=== PATIENT | female | born 1950 | race African-American/Black ===

== ENCOUNTER 2016-03-26 00:20 | Inpatient (IN) | payer MEDICAID ==
[~2016-03-26] VITALS: Ht 165.1 cm; Wt 77.3 kg
[2016-03-26] MEDS ORDERED: ONDANSETRON 4 MG INJ IV STA (00:34)
[2016-03-26] MEDS ORDERED: HYDROmorphONE 1 MG/ML SYG IV STA ×3 (00:34→06:48)
[2016-03-26 00:37] VITALS: Ht 165.1 cm; Wt 77.3 kg
[2016-03-26 01:33] VITALS: TEMP 98.3
[2016-03-26 02:08] LABS: POTASSIUM 4.6 mmol/L (3.5-5.1)
[2016-03-26 02:10] LABS: CREATININE 0.46 mg/dl (0.44-1.00)
[2016-03-26 02:11] LABS: CALCIUM 9.6 mg/dl (8.4-10.2)
[2016-03-26 02:34] LABS: BASOPHIL # 0.1 10^3/ul (0.0-0.1); BASOPHILS % 0.9 % (0.0-2.0); EOSINOPHILS # 0.1 10^3/ul (0.0-0.5); EOSINOPHILS % 1.5 % (0.0-7.0); HEMOGLOBIN 13.8 g/dl (12.0-16.0); LYMPHOCYTES % 30.1 % (15.0-51.0); MEAN CORPUSCULAR HEMOGLOBIN 31.6 pg (29.0-33.0); MEAN CORPUSCULAR HGB CONC 32.9 g/dl (32.0-37.0); MEAN CORPUSCULAR VOLUME 95.9 fl (82.0-101.0); MONOCYTE # 0.3 10^3/ul (0.3-0.9); MONOCYTES % 4.9 % (0.0-11.0); NEUTROPHIL # 4.1 10^3/ul (1.6-7.5); NEUTROPHILS % 62.6 % (39.0-77.0); PLATELET COUNT 270 10^3/UL (140-440); RED BLOOD COUNT 4.38 10^6/ul (4.20-5.40); RED CELL DISTRIBUTION WIDTH 13.6 % (11.5-14.5); UNCORRECTED WBC 6.5 10^3/ul (4.8-10.8); WHITE BLOOD COUNT 6.5 10^3/ul (4.8-10.8)
--- NOTE | 2016-03-26 02:39 | ERA ---
ER Documentation Chief Complaint Date/Time DATE: 03/26/16 TIME: 02:36 Chief Complaint BLE pain,hx osteo rheumatoid arthritis HPI 65-year-old female history of rheumatoid arthritis and chronic pain who presents with bilateral lower extremity pain. The patient presents from [facility]. The patient describes an exacerbation of her chronic pain in similar location but 10 out of 10. She does not know if she takes pain medication at home. She denies any fevers or chills, no abdominal pain, no back pain. Pain is in similar location and character but more severe than usual. ROS All systems reviewed and are negative except as per history of present illness. Allergies Allergies: Coded Allergies: No Known Allergy (Unverified , 03/26/16) FmHx Family History: No diabetes Physical Exam Vitals Vital Signs Date Time Temp Pulse Resp B/P Pulse Ox O2 Delivery O2 Flow Rate FiO2 03/26/16 01:33 98.3 86 16 113/60 95 Room Air 03/26/16 00:37 97.8 96 18 125/73 99 Physical Exam General: Uncomfortable, stigmata of rheumatoid arthritis Head: Normocephalic, atraumatic. Eyes: Pupils equally reactive, EOM intact ENT: Moist mucous membranes Neck: Supple, no lymphadenopathy Respiratory: Lungs clear bilaterally, no distress Cardiovascular: RRR, no murmurs, rubs, or gallops Abdominal: Soft, non-tender, non-distended, no peritoneal signs : Deferred MSK: Stigmata of rheumatoid arthritis to bilateral upper and lower extremities. No focal tenderness no erythema warmth or tenderness, no limited range of motion of the patient does not appear to walk on a regular basis. She states that she uses a wheelchair Neurologic: Alert and oriented, moving all extremities, normal speech, no focal weakness, no cerebellar signs Skin: No rash Psych: Normal mood Result Diagram: 03/26/16 0130 Results 24 hrs Laboratory Tests Test 03/26/16 01:30 Anion Gap 19 Blood Urea Nitrogen 14mg/dl Calcium Level 9.6mg/dl Carbon Dioxide Level 24mmol/L Chloride Level 103mmol/L Creatinine 0.46mg/dl Glucose Level 118mg/dl Potassium Level 4.6mmol/L Sodium Level 141mmol/L Current Medications Medications (Trade) Dose Ordered Sig/Essie Route PRN Reason Start Time Stop Time Status Last Admin Dose Admin Hydromorphone HCl (Dilaudid) 1 mg ONCE STAT IV 03/26/16 00:34 03/26/16 00:36 DC 03/26/16 01:10 Ondansetron HCl (Zofran Inj) 4 mg ONCE STAT IV 03/26/16 00:34 03/26/16 00:36 DC 03/26/16 01:10 Hydromorphone HCl (Dilaudid) 1 mg ONCE STAT IV 03/26/16 02:32 03/26/16 02:33 DC Ondansetron HCl (Zofran Inj) 4 mg BRIDGE ORDER PRN IV NAUSEA AND/OR VOMITING 03/26/16 03:00 03/27/16 02:59 Acetaminophen (Tylenol Tab) 650 mg ER BRIDGE PRN PO MILD PAIN/FEVER 03/26/16 03:00 03/27/16 02:59 Procedures/MDM LAB INTERPRETATION: No electrolyte disturbance MEDICAL DECISION MAKING: The patient's symptoms are consistent with an acute exacerbation of her chronic pain secondary to rheumatoid arthritis. No evidence of septic arthritis no evidence of acute aortic process. The patient does not walk at baseline. It appears the patient may also benefit from social work evaluation given that the patient is at a [id number] and not sure that the patient is getting adequate care. Higher level of care may be appropriate. ER COURSE: The patient has received several doses of pain medication requires inpatient hospitalization for pain control, PT OT and possible placement. I kept the patient and/or family informed of laboratory and diagnostic imaging results throughout the emergency room course. DISPOSITION PLAN: [facility] admission CONSULTATION: Accepting care team and consultations: I discussed the current laboratory data, diagnostic imaging and emergency care provided. Admitting team: Dr. Crum Admitting team indication: Insurance directed Departure Diagnosis: Primary Impression: Bilateral leg pain Additional Impressions: Rheumatoid arthritis Qualified Code: M06.9 - Rheumatoid arthritis, involving unspecified site, unspecified rheumatoid factor presence Rheumatoid arthritis flare Condition: MEGAN Del Toro MD Mar 26, 2016 02:39
[2016-03-26 02:52] LABS: CONDITION 1
[2016-03-26] MEDS ORDERED: ACETAMINOPHEN 325 MG TAB PO PRN ×2 (03:00→05:00)
[2016-03-26] MEDS ORDERED: ONDANSETRON 4 MG INJ IV PRN ×2 (03:00→05:00)
[2016-03-26 04:19] VITALS: BP 123/78; PULSE 84; RESP 20
[2016-03-26] MEDS ORDERED: morphine 4 MG/ML VIAL IV PRN ×2 (05:00→13:00)
[2016-03-26] MEDS ORDERED: MORP15TA92 PO (06:52)
[2016-03-26] MEDS ORDERED: PERCOCET PO (06:54)
[2016-03-26] MEDS ORDERED: METH57CR TP (06:54)
[2016-03-26 07:30] VITALS: BP 131/81; RESP 16
--- NOTE | 2016-03-26 08:00 | HP ---
DATE OF ADMISSION: 03/26/2016 TIME SEEN: 5:00 a.m. CHIEF COMPLAINT: Bilateral lower extremity pain. Patient is a 65-year-old female with a history of rheumatoid arthritis and chronic pain who presented to the emergency department with bilateral lower extremity pain. She stated this is similar to her chronic pain, but over the past day or two has bong dugan worse to the point where now she described it as 10/10 in intensity. She denied any other com plaints. When she presented to the ER, her vitals were stable. CBC and BMP are unremarkable. The patient is admitted for pain management. REVIEW OF SYSTEMS: A 12-point review of systems performed is negative except as mentioned in HPI. PAST MEDICAL HISTORY: As per HPI. PAST SURGICAL HISTORY: Bilateral hip surgery and bilateral bunionectomy. SOCIAL HISTORY: Denied a history of tobacco, alcohol or illicit drug use. ALLERGIES: NO KNOWN DRUG ALLERGIES. HOME MEDICATIONS: 1. MS Contin 15 mg every 8 hours. 2. Percocet. 3. Methyl salicylate/menthol cream. PHYSICAL EXAMINATION: VITAL SIGNS: Stable. GENERAL: The patient in some discomfort due to pain, otherwise she is alert and oriented. HEENT: No obvious head deformity. Pupils are reactive to light. Extraocular muscles intact. CARDIOVASCULAR: Regular rate and rhythm. No extra sounds. LUNGS: Clear. ABDOMEN: Soft, nontender, nondistended. Positive bowel sounds. EXTREMITIES: She does have deformities consistent with rheumatoid arthritis. No edema. LABORATORY DATA: CBC and BMP unremarkable. IMPRESSION: 1. Exacerbation of rheumatoid arthritis. 2. Chronic pain, secondary to above. We will provide pain medication to make her feel comfortable. We will also start her on steroids. We will place consult to Dr. Garcia, pain specialist/palliative care. The patient uses a [employer] most of the time, but will have her be evaluated by physical therapy prior to discharge. Further workup and management per clinical course. Dictated By: EUSEBIA HUNG/LYNDSEY Conf#: [id number] DID#: [id number]
[2016-03-26 09:19] LABS: BASOPHIL # 0.1 10^3/ul (0.0-0.1); BASOPHILS % 0.9 % (0.0-2.0); CONDITION 1; EOSINOPHILS # 0.1 10^3/ul (0.0-0.5); HEMATOCRIT 38.4 % (37.0-47.0); HEMOGLOBIN 12.8 g/dl (12.0-16.0); LYMPHOCYTES # 1.3 10^3/ul (0.8-2.9); LYMPHOCYTES % 22.2 % (15.0-51.0); MEAN CORPUSCULAR HEMOGLOBIN 32.1 pg (29.0-33.0); MEAN CORPUSCULAR HGB CONC 33.2 g/dl (32.0-37.0); MEAN CORPUSCULAR VOLUME 96.7 fl (82.0-101.0); MEAN PLATELET VOLUME 6.5 fl (7.4-10.4); MONOCYTE # 0.4 10^3/ul (0.3-0.9); MONOCYTES % 7.1 % (0.0-11.0); NEUTROPHIL # 3.8 10^3/ul (1.6-7.5); NEUTROPHILS % 67.8 % (39.0-77.0); PLATELET COUNT 275 10^3/UL (140-440); RED BLOOD COUNT 3.97 10^6/ul (4.20-5.40); RED CELL DISTRIBUTION WIDTH 13.5 % (11.5-14.5); UNCORRECTED WBC 5.7 10^3/ul (4.8-10.8); WHITE BLOOD COUNT 5.7 10^3/ul (4.8-10.8)
[2016-03-26 09:25] LABS: ALBUMIN 4.1 g/dl (3.3-4.9); POTASSIUM 3.9 mmol/L (3.5-5.1)
[2016-03-26 09:27] LABS: CREATININE 0.43 mg/dl (0.44-1.00)
[2016-03-26 09:28] LABS: ALBUMIN/GLOBULIN RATIO 1.1; BILIRUBIN,INDIRECT 0.3 mg/dl (0-1.1); BILIRUBIN,TOTAL 0.3 mg/dl (0.2-1.3); CALCIUM 9.4 mg/dl (8.4-10.2); TOTAL PROTEIN 7.8 g/dl (6.1-8.1)
[2016-03-26] MEDS: HEPARIN 5,000 UNIT/0.5 ML SYG SC SCH ×2 (10:17→21:31)
[2016-03-26 13:15] LABS: CHOL/HDL RATIO 2.7 RATIO
[2016-03-26] MEDS: morphine 2 MG INJ IV PRN ×2 (16:00→21:01)
[2016-03-26 19:00] VITALS: BP 118/70; RESP 18
[2016-03-27] MEDS: morphine 2 MG INJ IV PRN ×5 (01:43→18:39)
[2016-03-27] MEDS: PANTOPRAZOLE (EC) 40 MG TAB PO SCH (06:16)
[2016-03-27 07:09] LABS: BASOPHILS % 0.5 % (0.0-2.0); EOSINOPHILS # 0.1 10^3/ul (0.0-0.5); EOSINOPHILS % 1.7 % (0.0-7.0); HEMATOCRIT 40.2 % (37.0-47.0); HEMOGLOBIN 13.4 g/dl (12.0-16.0); LYMPHOCYTES # 1.7 10^3/ul (0.8-2.9); LYMPHOCYTES % 25.6 % (15.0-51.0); MEAN CORPUSCULAR HEMOGLOBIN 32.1 pg (29.0-33.0); MEAN CORPUSCULAR HGB CONC 33.3 g/dl (32.0-37.0); MEAN CORPUSCULAR VOLUME 96.5 fl (82.0-101.0); MEAN PLATELET VOLUME 7.4 fl (7.4-10.4); MONOCYTE # 0.6 10^3/ul (0.3-0.9); MONOCYTES % 9.7 % (0.0-11.0); NEUTROPHIL # 4.1 10^3/ul (1.6-7.5); NEUTROPHILS % 62.5 % (39.0-77.0); PLATELET COUNT 269 10^3/UL (140-440); RED BLOOD COUNT 4.16 10^6/ul (4.20-5.40); RED CELL DISTRIBUTION WIDTH 13.5 % (11.5-14.5); UNCORRECTED WBC 6.5 10^3/ul (4.8-10.8); WHITE BLOOD COUNT 6.5 10^3/ul (4.8-10.8)
[2016-03-27 07:13] LABS: CONDITION 1
[2016-03-27 07:22] VITALS: BP 119/62; RESP 16
[2016-03-27 07:34] LABS: POTASSIUM 4.1 mmol/L (3.5-5.1)
[2016-03-27 07:37] LABS: CREATININE 0.46 mg/dl (0.44-1.00)
[2016-03-27 07:38] LABS: CALCIUM 9.6 mg/dl (8.4-10.2)
[2016-03-27] MEDS: HEPARIN 5,000 UNIT/0.5 ML SYG SC SCH ×2 (08:41→21:01)
[2016-03-27] MEDS ORDERED: LOPERAMIDE 2 MG CAP PO PRN (09:30)
[2016-03-27] MEDS ORDERED: ALBUTEROL/IPRATROPIUM (NEB) 3 ML AMP HHN PRN (10:00)
[2016-03-27 10:02] LABS: ADD UMIC YES; URINE BILIRUBIN (Dip) NEGATIVE (NEGATIVE); URINE BLOOD (Dip) TRACE (NEGATIVE); URINE COLOR LT. YELLOW (YELLOW); URINE GLUCOSE (Dip) NEGATIVE (NEGATIVE); URINE KETONES (Dip) NEGATIVE (NEGATIVE); URINE LEUKOCYTE ESTERASE (Dip) 2+ (NEGATIVE); URINE NITRITE (Dip) NEGATIVE (NEGATIVE); URINE TOTAL PROTEIN (Dip) NEGATIVE (NEGATIVE); URINE UROBILINOGEN (Dip) 0.2 E.U./dL (0.1-1.0)
[2016-03-27 10:33] LABS: BACTERIA,URINE MODERATE
--- NOTE | 2016-03-27 11:13 | RADRPT ---
PROCEDURE: XR Abdomen. CLINICAL INDICATION: Abdomen pain. TECHNIQUE: AP supine abdomen x-ray. COMPARISON: None. FINDINGS: The bowel gas pattern is normal. There is no evidence of obstruction. There are no abnormal calcifications overlying the urinary tracts. There is thoracic scoliosis convex right and lumbar scoliosis convex left. There are degenerative c hanges of the spine. There are bilateral total hip arthroplasties. IMPRESSION: 1. Thoracolumbar scoliosis. 2. Degenerative changes of the spine. 3. Bilateral total hip arthroplasties. 4. Otherwise unremarkable study. RPTAT: QQ .Montrell Aguilera MD, MD Date Time Electronically viewed and signed by .Montrell Aguilera MD, MD on 03/27/2016 11:13 .R/
[2016-03-27] MEDS: CYCLOBENZAPRINE 10 MG TAB PO SCH ×2 (12:18→20:26)
[2016-03-27] MEDS: ACYCLOVIR TOP SCH ×2 (17:07→20:26)
[2016-03-27] MEDS: LORAZEPAM 2 MG INJ IV PRN (17:26)
--- NOTE | 2016-03-27 19:08 | CONS ---
DATE OF ADMISSION: 03/26/2016 DATE OF CONSULTATION: 03/26/2016 TYPE OF CONSULTATION: Infectious Disease. REASON FOR CONSULTATION: Antibiotic management. HISTORY OF PRESENT ILLNESS: Matilde Huitron is a 65-year-old female with severe rheumatoid arthritis who comes in with bilateral lower extremity pain. She has chronic pain. She presented to the emerg ency room with bilateral lower extremity pain, but it has gotten worse and is 10/10 in intensity. PAST SURGICAL HISTORY: Includes bilateral hip surgery and bilateral bunionectomies. SOCIAL HISTORY: Denies history of tobacco, alcohol or illicit drug use. ALLERGIES: NONE TO PENICILLIN, SULFA OR FOODS. MEDICATIONS: Per chart. REVIEW OF SYSTEMS: Noncontributory. PHYSICAL EXAMINATION: GENERAL: The patient is a well-developed, well-nourished, chronically ill-appearing female with sti gmata of rheumatoid arthritis. SKIN: Without generalized rash. HEENT: Within normal limits. NECK: Supple. LYMPH NODES: None palpable. CHEST: Decreased breath sounds at the bases. HEART: Without murmur or gallop. ABDOMEN: Soft, nontender, without organosplenomegaly or masses. She has bilateral total hip arthrop lasties, otherwise unremarkable. EXTREMITIES: Without cyanosis, clubbing, or edema. RECTAL AND GENITAL: She has some lesions on her labia, which may or may not be herpes, although she has never had herpes in the past. NEUROLOGIC: No focal neurological abnormality. HOSPITAL COURSE: Her white count on admission was 6.5, H and H 13.8 and 42, platelet count of 270,0 00. BUN and creatinine is 12/0.43 and today 11/0.46. White count 6.5. Urine negative 2+ leukocyte esterase, 10 to 25 white cells per high power field. Rheumatoid factor screen is negative. Patient was started on acyclovir. We will see if we can do any cultures, if there is anything to cu lture certainly we should get serologies for herpes. I will dictate my findings to Dr. Crum. Dictated By: MARAL FIELDS MD, JD/LYNDSEY Conf#: [id number] DID#: [id number]
[2016-03-27] MEDS: ACYCLOVIR 400 MG TAB PO SCH (20:26)
[2016-03-27 20:55] VITALS: BP 123/64; RESP 16
[2016-03-28] MEDS: ZOLPIDEM 5 MG TAB PO PRN (01:25)
[2016-03-28] MEDS: morphine 2 MG INJ IV PRN ×6 (01:27→22:07)
[2016-03-28] MEDS: ACYCLOVIR TOP SCH ×6 (01:28→22:06)
[2016-03-28] MEDS ORDERED: VITAMIN A & D 5 GM OINT PACKET TOP ONE (01:34)
[2016-03-28] MEDS: LORAZEPAM 2 MG INJ IV PRN ×2 (03:56→18:47)
[2016-03-28] MEDS: PANTOPRAZOLE (EC) 40 MG TAB PO SCH (06:12)
[2016-03-28 06:14] LABS: BASOPHILS % 0.7 % (0.0-2.0); EOSINOPHILS # 0.1 10^3/ul (0.0-0.5); EOSINOPHILS % 1.7 % (0.0-7.0); HEMATOCRIT 40.3 % (37.0-47.0); HEMOGLOBIN 13.5 g/dl (12.0-16.0); LYMPHOCYTES % 38.7 % (15.0-51.0); MEAN CORPUSCULAR HEMOGLOBIN 32.5 pg (29.0-33.0); MEAN CORPUSCULAR HGB CONC 33.5 g/dl (32.0-37.0); MEAN CORPUSCULAR VOLUME 96.9 fl (82.0-101.0); MEAN PLATELET VOLUME 7.1 fl (7.4-10.4); MONOCYTE # 0.5 10^3/ul (0.3-0.9); MONOCYTES % 9.6 % (0.0-11.0); NEUTROPHIL # 2.5 10^3/ul (1.6-7.5); NEUTROPHILS % 49.3 % (39.0-77.0); PLATELET COUNT 227 10^3/UL (140-440); RED BLOOD COUNT 4.15 10^6/ul (4.20-5.40); RED CELL DISTRIBUTION WIDTH 13.7 % (11.5-14.5); UNCORRECTED WBC 5.2 10^3/ul (4.8-10.8); WHITE BLOOD COUNT 5.2 10^3/ul (4.8-10.8)
[2016-03-28 06:19] LABS: POTASSIUM 4.1 mmol/L (3.5-5.1)
[2016-03-28 06:22] LABS: CREATININE 0.42 mg/dl (0.44-1.00)
[2016-03-28 06:23] LABS: CALCIUM 9.3 mg/dl (8.4-10.2)
[2016-03-28 06:29] LABS: CONDITION 1
[2016-03-28 07:43] VITALS: BP 128/77; RESP 20
[2016-03-28] MEDS: ACYCLOVIR 400 MG TAB PO SCH ×3 (09:12→22:05)
[2016-03-28] MEDS: CYCLOBENZAPRINE 10 MG TAB PO SCH ×2 (09:12→12:49)
[2016-03-28] MEDS: HEPARIN 5,000 UNIT/0.5 ML SYG SC SCH ×2 (09:16→22:52)
--- NOTE | 2016-03-28 12:20 | PN ---
Date/Time of Note Date/Time of Note DATE: 03/28/16 TIME: 11:36 Assessment/Plan VTE Prophylaxis VTE Prophylaxis Intervention: heparin Lines/Catheters IV Catheter Type (from Nrsg): Saline Lock Urinary Cath still in place: No Assessment/Plan Assessment/Plan 65 yo F with multiple non specific issues managed as follows 1. Herpes Genitalis: Acyclovir / ID managing / pain control / ?sitz baths/ supportive care 2. Mood disorder : ?Frustration versus depression will get official psych eval / SW consult 3. 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 Abd distention and discomfort XR findings suggestive of constipation to me / Abd USS ordered and pending / will start stool softeners in the interim 5. Gram Negative UTI f/u cultures/ start empiric Levaquin 6, Chronic RA Patient was not on DMARDS and was only on pain meds at home / continue home regimen and prednisone for now Further evaluation and treatment will be based on clinical course Full discussion with care team done. All questions Answered Please also see orders. Total time spent on this evaluation >35mins Subjective 24 Hr Interval Summary Free Text/Dictation Patient has multiple non specific symptoms: 1. Feels her abd girth is visibly enlarged because of bad care and food at retirement 2. Concerned about loss of control in her L ankle joint while lying down, it deviates to the L and her attempts to rotate it are limited by pain in her L hip joint 3. She gets very teary and cried multiple times during the visit because of frustration that her body doesn't seem to be able to get up and go like she wants it too and on top of that being told she had herpes genitalia which she also attributes to poor care She refused to be told she is depressed because depressed people "lock themselves in closets", she she is just frustrated with her many medica issues. 4. She also has pain in R knee that radiates up to her hips Time spent with patient was >35mins. Exam/Review of Systems Vital Signs Vitals Vital Signs Date Time Temp Pulse Resp B/P Pulse Ox O2 Delivery O2 Flow Rate FiO2 03/28/16 07:43 98.6 105 20 128/77 100 03/26/16 04:19 Room Air Intake and Output 03/27/16 03/27/16 03/28/16 15:00 23:00 07:00 Intake Total 720 ml 560 ml Balance 720 ml 560 ml Exam Constitutional: alert, distress, frail Psych: anxiety, depression Head: normocephalic Eyes: PERRL, No icteric ENMT: mucosa pink and moist Neck: non-tender, supple Respiratory: clear to auscultation, diminished breath sounds Cardiovascular: regular rate and rhythm, No murmurs/extra sounds Gastrointestinal: bowel sounds, non-tender, other (full / ?obese), soft, No ascites Genitourinary - Female: other (diffuse marcelina labial swelling swelling with small fluid filled blisters sparsely scattered around her labia bilaterally), No nl adnexae Musculoskeletal: other (patient has stigmata of chronic RA in fingers and hands ) Extremities: other (L foot indeed externally rotated at rest and difficult to internally rotate without pain), No edema Skin: rash or lesions Results Result Diagram: 03/28/1615 03/28/16 0515 Results 24 hrs Laboratory Tests Test 03/28/16 05:15 Anion Gap 19 H Basophils # 0.0 Basophils % 0.7 Blood Morphology Comment Blood Urea Nitrogen 9 Calcium Level 9.3 Carbon Dioxide Level 23 Chloride Level 104 Creatinine 0.42 L Eosinophils # 0.1 Eosinophils % 1.7 Glucose Level 138 Hematocrit 40.3 Hemoglobin 13.5 Lymphocytes # 2.0 Lymphocytes % 38.7 Mean Corpuscular Hemoglobin 32.5 Mean Corpuscular Hemoglobin Concent 33.5 Mean Corpuscular Volume 96.9 Mean Platelet Volume 7.1 L Monocytes # 0.5 Monocytes % 9.6 Neutrophils # 2.5 Neutrophils % 49.3 Nucleated Red Blood Cells # 0.0 Nucleated Red Blood Cells % 0.0 Platelet Count 227 Potassium Level 4.1 Red Blood Count 4.15 L Red Cell Distribution Width 13.7 Sodium Level 142 White Blood Count 5.2 Medications Medications Current Medications Ondansetron HCl (Zofran Inj) 4 mg Q6H PRN IV NAUSEA AND/OR VOMITING Last administered on 03/26/16t 08:15; Admin Dose 4 MG; Start 03/26/16 at 05:00 Acetaminophen (Tylenol Tab) 650 mg Q6H PRN PO PAIN AND OR ELEVATED TEMP; Start 03/26/16 at 05:00 Heparin Sodium (Porcine) (Heparin (5000 Units/0.5 ml)) 5,000 unit BID SC Last administered on 03/28/16 09:16; Admin Dose 5,000 UNIT; Start 03/26/16 at 09:00 Pantoprazole (Protonix Tab) 40 mg DAILY@06 PO Last administered on 03/28/16 06 :12; Admin Dose 40 MG; Start 03/27/16 at 06:00 Acetaminophen/ Hydrocodone Bitart ([place] (7.5-325)) 1 tab Q4H PRN PO PAIN LEVEL 8-10; Start 03/26/16 at 13:00 Morphine Sulfate (morphine) 2 mg Q4H PRN IV PAIN Last administered on 09:39; Admin Dose 2 MG; Start 03/26/16 at 16:00 Loperamide HCl (Imodium Cap) 2 mg QID PRN PO DIARRHEA; Start 03/27/16 at 09:30 Zolpidem Tartrate (Ambien) 5 mg HS PRN PO INSOMNIA Last administered on 01:25; Admin Dose 5 MG; Start 03/27/16 at 09:30 Cyclobenzaprine HCl (Flexeril) 5 mg TID PO Last administered on 03/28/16 09:12 ; Admin Dose 5 MG; Start 03/27/16 at 13:00 Lorazepam (Ativan) 0.5 mg Q6H PRN IV AGITATION/ANXIETY Last administered on 03:56; Admin Dose 0.5 MG; Start 03/27/16 at 10:00 Acyclovir (Zovirax) 400 mg TID PO Last administered on 03/28/16 09:12; Admin Dose 400 MG; Start 03/27/16 at 21:00; Stop 04/03/16 at 21:00 Acyclovir (Zovirax Cr) 1 applic Q4 TOP Last administered on 03/28/16 09:12; Admin Dose 1 APPLIC; Start 03/27/16 at 17:00; Stop 04/03/16 at 17:00 Procedures Procedures PROCEDURE: XR Abdomen. CLINICAL INDICATION: Abdomen pain. TECHNIQUE: AP supine abdomen x-ray. COMPARISON: None. FINDINGS: The bowel gas pattern is normal. There is no evidence of obstruction. There are no abnormal calcifications overlying the urinary tracts. There is thoracic scoliosis convex right and lumbar scoliosis convex left. There are degenerative changes of the spine. There are bilateral total hip arthroplasties. IMPRESSION: 1. Thoracolumbar scoliosis. 2. Degenerative changes of the spine. 3. Bilateral total hip arthroplasties. 4. Otherwise unremarkable study. RPTAT: QQ .Montrell Aguilera MD, MD Date Time Electronically viewed and signed by .Montrell Aguilera MD, MD on 03/27/2016 11:13 EDMOND MURRAY Mar 28, 2016 12:20
[2016-03-28] MEDS ORDERED: CYCLOBENZAPRINE 10 MG TAB PO PRN (17:00)
[2016-03-28] MEDS ORDERED: LEVOFLOXACIN 500 MG TAB NGT SCH (17:30)
[2016-03-28] MEDS: FLUCONAZOLE 200 MG TAB PO SCH (17:46)
[2016-03-28 19:00] VITALS: BP 130/58; RESP 20
--- NOTE | 2016-03-28 19:09 | PN ---
DATE: SUBJECTIVE: The patient is lying comfortably in bed, sleeping. No fevers. She is on acyclovir and fluconazole daily. LABORATORY DATA: WBC 5.2. No shift, no bands. BUN 9, creatinine 0.42. MICROBIOLOGY: Urine culture is growing gram-negative rods, 20,000 to 30,000 colonies only. PHYSICAL EXAMINATION: GENERAL: Chronically ill-appearing, elderly woman who is in no distress. HEENT: Head atraumatic, normocephalic. Sclerae anicteric. Buccal mucosa dry. NECK: Supple. Trachea midline. CHEST: Rise symmetrical. Breath sounds diminished to bases. HEART: S1, S2. ABDOMEN: Soft. Bowel tones present. EXTREMITIES: Without cyanosis. ASSESSMENT: 1. Vaginal herpes on acyclovir. 2. Mild gram-negative kevin urinary tract infection. 3. Rheumatoid arthritis. 4. Chronic pain syndrome. PLAN: We are going to start her on either Levaquin or Rocephin. Continue acyclovir. Await for HSV serology. Continue pain management and supportive care. Dictated By: ILIANA CHAVIRA FAMILY DAY CARER for MARAL GRECO/LYNDSEY Conf#: [id number] DID#: [id number]
--- NOTE | 2016-03-28 20:45 | RADRPT ---
PROCEDURE: XR Left Ankle CLINICAL INDICATION: Pain TECHNIQUE: Standard 3 view radiographs were submitted. COMPARISON: None FINDINGS: Osseous structures: Incompletely included on this study there is a non-acute oblique fracture involv ing the distal tibial shaft with callous formation and synostosis between the tibia and fibula. The osseous elements are somewhat rarefied. There is a healed fracture involving the base of the first metatarsal with a metal caval seen laterally. There is calcaneal spurring most evident at the inse rtion of the plantar aponeurosis. Joint spaces: The ankle mortise is anatomically maintained. Soft tissues: Appear unremarkable. IMPRESSION: 1. Incompletely included is an old oblique fracture involving the distal tibial diaphysis with call ous formation evident and with synostosis between the tibia and fibula. 2. Healed fracture at the base of the first that tarsal with metal cava lying seen at the lateral a spect. 3. Osteoporosis 4. The ankle mortise is anatomically maintained. 5. Calcaneal spurring. Physician Lucille Date Time Electronically viewed and signed by Physician Lucille on 03/28/2016 20:45 /
[2016-03-28] MEDS ORDERED: POLYETHYLENE GLYCOL 17 GM PACKET PO PRN (21:00)
[2016-03-29] MEDS: ZOLPIDEM 5 MG TAB PO PRN ×2 (01:07→23:13)
[2016-03-29] MEDS: ALPRAZOLAM 0.25 MG TAB PO PRN (01:07)
[2016-03-29] MEDS: ACYCLOVIR TOP SCH ×6 (01:08→20:32)
[2016-03-29] MEDS: morphine 2 MG INJ IV PRN ×5 (02:09→19:36)
[2016-03-29] MEDS ORDERED: LORAZEPAM 2 MG INJ IV ONE (04:00)
[2016-03-29] MEDS: PANTOPRAZOLE (EC) 40 MG TAB PO SCH (05:45)
[2016-03-29 07:41] VITALS: BP 116/60; RESP 20
--- NOTE | 2016-03-29 08:25 | PN ---
DATE: 03/27/2016 SUBJECTIVE: The patient has multiple complaints including abdominal distention, pain symptoms. OBJECTIVE: VITAL SIGNS: Stable. GENERAL: The patient is lying in bed, answering questions appropriately, in mild distress. HEENT: Pupils equal, round, react to light. Extraocular muscles intact. NECK: Supple, no thyromegaly. LUNGS: Clear to auscultation bilaterally. CARDIOVASCULAR: S1, S2 heard. No rubs or gallops. ABDOMEN: Slightly distended but nontender, soft otherwise, normal bowel sounds. No rebound or guar ding. NEUROLOGIC: She does have deformities consistent with rheumatoid arthritis in her bilateral hands a nd bilateral feet. EXTREMITIES: No lower extremity edema bilaterally. NEUROLOGIC: No signs of any focal deficits. LABORATORY DATA: CBC is normal. BMP is normal. ASSESSMENT AND PLAN: A 65-year-old female with history of rheumatoid arthritis and chronic pain who presents with bilateral lower extremity pain. 1. Bilateral lower extremity pain, most likely exacerbation of rheumatoid arthritis. Continue pain control medications, morphine and [place]. We will add muscle relaxant as well. Also, medicine for anxiety. 2. Abdominal distention. We will get a KUB to rule out any obstructions. 3. History of rheumatoid arthritis, again continue current medications. Consider adding steroids. 4. Questionable diarrhea. Loperamide p.r.n. 5. Gastrointestinal prophylaxis with proton pump inhibitor. Deep venous thrombosis prophylaxis wit h heparin subcutaneously. Also get PT consult, OT consult, and get medical records from [facility]. The patient apparently was hospitalized there recently so try to get the records to see how patien t was treated. The patient is a somewhat poor historian. Dictated By: SHAWNA PACHECO Conf#: [id number] DID#: [id number]
[2016-03-29] MEDS: FLUCONAZOLE 200 MG TAB PO SCH (09:38)
[2016-03-29] MEDS: ACYCLOVIR 400 MG TAB PO SCH ×3 (09:38→20:31)
[2016-03-29] MEDS: HEPARIN 5,000 UNIT/0.5 ML SYG SC SCH ×2 (09:41→20:33)
--- NOTE | 2016-03-29 13:55 | PN ---
Date/Time of Note Date/Time of Note DATE: 03/29/16 TIME: 13:48 Assessment/Plan VTE Prophylaxis VTE Prophylaxis Intervention: heparin Lines/Catheters IV Catheter Type (from Nrsg): Saline Lock Urinary Cath still in place: No Assessment/Plan Assessment/Plan 65 yo F with multiple non specific issues managed as follows 1. Herpes Genitalis: Continue Acyclovir / ID managing / pain control / ?sitz baths/ supportive care 2. Mood disorder : ?Frustration versus depression will get official psych eval / SW consult / well puller visit with patient 3. 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 4. Abd distention and discomfort XR findings suggestive of constipation to me / Abd USS ordered and pending / will start stool softeners in the interim 5. Morganella Morgagni / Yeast UTI Continue Levaquin /. ID managing abx 6, Chronic RA Patient was not on DMARDS and was only on pain meds at home / continue home regimen and prednisone for now 7. PreDM A1c 6,2 good fasting levels in-house / continue close monitoring Patient does not want to go back to previous convalescent home / CM working on placement Further evaluation and treatment will be based on clinical course Full discussion with care team done. All questions Answered Please also see orders. Subjective 24 Hr Interval Summary Free Text/Dictation Patient seen and examined. says she's not feeling better, still tearful zoey weber complaints Exam/Review of Systems Vital Signs Vitals Vital Signs Date Time Temp Pulse Resp B/P Pulse Ox O2 Delivery O2 Flow Rate FiO2 03/29/16 07:41 98.7 78 20 116/60 97 03/26/16 04:19 Room Air Intake and Output 03/28/16 03/28/16 03/29/16 15:00 23:00 07:00 Intake Total 1800 ml 1360 ml Output Total 0 ml Balance 1800 ml 1360 ml Exam Constitutional: alert, distress, frail Psych: anxiety, depression Head: normocephalic Eyes: PERRL, No icteric ENMT: mucosa pink and moist Neck: non-tender, supple Respiratory: clear to auscultation, diminished breath sounds Cardiovascular: regular rate and rhythm, No murmurs/extra sounds Gastrointestinal: bowel sounds, non-tender, other (full / ?obese), soft, No ascites Genitourinary - Female: other (diffuse marcelina labial swelling swelling with small fluid filled blisters sparsely scattered around her labia bilaterally), No nl adnexae Musculoskeletal: other (patient has stigmata of chronic RA in fingers and hands ) Extremities: other (L foot indeed externally rotated at rest and difficult to internally rotate without pain), No edema Skin: rash or lesions Results Result Diagram: 03/28/1651403/28/16514 Medications Medications Current Medications Ondansetron HCl (Zofran Inj) 4 mg Q6H PRN IV NAUSEA AND/OR VOMITING Last administered on 03/26/16 08:15; Admin Dose 4 MG; Start 03/26/16 at 05:00 Acetaminophen (Tylenol Tab) 650 mg Q6H PRN PO PAIN AND OR ELEVATED TEMP; Start 03/26/16 at 05:00 Heparin Sodium (Porcine) (Heparin (5000 Units/0.5 ml)) 5,000 unit BID SC Last administered on 03/29/16 09:41; Admin Dose 5,000 UNIT; Start 03/26/16 at 09:00 Pantoprazole (Protonix Tab) 40 mg DAILY@06 PO Last administered on 03/29/16 05 :45; Admin Dose 40 MG; Start 03/27/16 at 06:00 Acetaminophen/ Hydrocodone Bitart ([place] (7.5-325)) 1 tab Q4H PRN PO PAIN LEVEL 8-10; Start 03/26/16 at 13:00 Morphine Sulfate (morphine) 2 mg Q4H PRN IV PAIN Last administered on 11:27; Admin Dose 2 MG; Start 03/26/16 at 16:00 Loperamide HCl (Imodium Cap) 2 mg QID PRN PO DIARRHEA; Start 03/27/16 at 09:30 Zolpidem Tartrate (Ambien) 5 mg HS PRN PO INSOMNIA Last administered on 01:07; Admin Dose 5 MG; Start 03/27/16 at 09:30 Lorazepam (Ativan) 0.5 mg Q6H PRN IV AGITATION/ANXIETY Last administered on 18:47; Admin Dose 0.5 MG; Start 03/27/16 at 10:00 Acyclovir (Zovirax) 400 mg TID PO Last administered on 03/29/16 13:16; Admin Dose 400 MG; Start 03/27/16 at 21:00; Stop 04/03/16 at 21:00 Acyclovir (Zovirax Cr) 1 applic Q4 TOP Last administered on 03/29/16 13:16; Admin Dose 1 APPLIC; Start 03/27/16 at 17:00; Stop 04/03/16 at 17:00 Cyclobenzaprine HCl (Flexeril) 5 mg TID PRN PO msc spasms; Start 03/28/16 at 17 :00 Alprazolam (Xanax) 0.25 mg Q8H PRN PO ANXIETY Last administered on 03/29/16 01 :07; Admin Dose 0.25 MG; Start 03/28/16 at 17:00 Fluconazole (Diflucan) 200 mg DAILY PO Last administered on 03/29/16 09:38; Admin Dose 200 MG; Start 03/28/16 at 17:00; Stop 04/11/16 at 16:59 Polyethylene Glycol 17 gm 17 gm DAILY PRN PO CONSTIPATION; Start 03/28/16 at 21 :00 Ertapenem/Sodium Chloride (Invanz/NS) 100 ml @ 200 mls/hr Q24H IVPB ; Start at 13:15 Procedures Procedures CLINICAL INDICATION: Pain TECHNIQUE: Standard 3 view radiographs were submitted. COMPARISON: None FINDINGS: Osseous structures: Incompletely included on this study there is a non-acute oblique fracture involving the distal tibial shaft with callous formation and synostosis between the tibia and fibula. The osseous elements are somewhat rarefied. There is a healed fracture involving the base of the first metatarsal with a metal caval seen laterally. There is calcaneal spurring most evident at the insertion of the plantar aponeurosis. Joint spaces: The ankle mortise is anatomically maintained. Soft tissues: Appear unremarkable. IMPRESSION: 1. Incompletely included is an old oblique fracture involving the distal tibial diaphysis with callous formation evident and with synostosis between the tibia and fibula. 2. Healed fracture at the base of the first that tarsal with metal cava lying seen at the lateral aspect. 3. Osteoporosis 4. The ankle mortise is anatomically maintained. 5. Calcaneal spurring. Analia Zayas Physician Date Time Electronically viewed and signed by Analia Zayas, Physician on 03/28/2016 20:45 EDMOND MURRAY Mar 29, 2016 13:55
--- NOTE | 2016-03-29 13:57 | CONS ---
Date/Time of Note Date/Time of Note DATE: 03/29/16 TIME: 13:55 Assessment/Plan Assessment/Plan Chief Complaint/Hosp Course Subjective: No acute changes per report, looks comfortable, no fevers MICROBIOLOGY: Urine culture is growing MDR Morganella Abx: Invanz, Acyclovir PHYSICAL EXAMINATION: GENERAL: Chronically ill-appearing, elderly woman who is in no distress. HEENT: Head atraumatic, normocephalic. Sclerae anicteric. Buccal mucosa dry. NECK: Supple. Trachea midline. CHEST: Rise symmetrical. Breath sounds diminished to bases. HEART: S1, S2. ABDOMEN: Soft. Bowel tones present. EXTREMITIES: Without cyanosis. ASSESSMENT: 1. Vaginal herpes on acyclovir. 2. Mild gram-negative kevin urinary tract infection. 3. Rheumatoid arthritis. 4. Chronic pain syndrome. PLAN: Stable, abx changed to Invanz, continue present care DW staff Problems: Consultation Date/Type/Reason Admit Date/Time Mar 26, 2016 at 02:34 Initial Consult Date Type of Consultation: id Exam/Review of Systems Vital Signs Vitals Vital Signs Date Time Temp Pulse Resp B/P Pulse Ox O2 Delivery O2 Flow Rate FiO2 03/29/16 07:41 98.7 78 20 116/60 97 03/26/16 04:19 Room Air Intake and Output 03/28/16 03/28/16 03/29/16 15:00 23:00 07:00 Intake Total 1800 ml 1360 ml Output Total 0 ml Balance 1800 ml 1360 ml Results Result Diagram: 03/28/1615 03/28/1615 Medications Medications Current Medications Ondansetron HCl (Zofran Inj) 4 mg Q6H PRN IV NAUSEA AND/OR VOMITING Last administered on 03/26/16 08:15; Admin Dose 4 MG; Start 03/26/16 at 05:00 Acetaminophen (Tylenol Tab) 650 mg Q6H PRN PO PAIN AND OR ELEVATED TEMP; Start 03/26/16 at 05:00 Heparin Sodium (Porcine) (Heparin (5000 Units/0.5 ml)) 5,000 unit BID SC Last administered on 03/29/16 09:41; Admin Dose 5,000 UNIT; Start 03/26/16 at 09:00 Pantoprazole (Protonix Tab) 40 mg DAILY@06 PO Last administered on 03/29/16 05 :45; Admin Dose 40 MG; Start 03/27/16 at 06:00 Acetaminophen/ Hydrocodone Bitart ([place] (7.5-325)) 1 tab Q4H PRN PO PAIN LEVEL 8-10; Start 03/26/16 at 13:00 Morphine Sulfate (morphine) 2 mg Q4H PRN IV PAIN Last administered on 11:27; Admin Dose 2 MG; Start 03/26/16 at 16:00 Loperamide HCl (Imodium Cap) 2 mg QID PRN PO DIARRHEA; Start 03/27/16 at 09:30 Zolpidem Tartrate (Ambien) 5 mg HS PRN PO INSOMNIA Last administered on 01:07; Admin Dose 5 MG; Start 03/27/16 at 09:30 Lorazepam (Ativan) 0.5 mg Q6H PRN IV AGITATION/ANXIETY Last administered on 18:47; Admin Dose 0.5 MG; Start 03/27/16 at 10:00 Acyclovir (Zovirax) 400 mg TID PO Last administered on 03/29/16 13:16; Admin Dose 400 MG; Start 03/27/16 at 21:00; Stop 04/03/16 at 21:00 Acyclovir (Zovirax Cr) 1 applic Q4 TOP Last administered on 03/29/16 13:16; Admin Dose 1 APPLIC; Start 03/27/16 at 17:00; Stop 04/03/16 at 17:00 Cyclobenzaprine HCl (Flexeril) 5 mg TID PRN PO msc spasms; Start 03/28/16 at 17 :00 Alprazolam (Xanax) 0.25 mg Q8H PRN PO ANXIETY Last administered on 03/29/16 01 :07; Admin Dose 0.25 MG; Start 03/28/16 at 17:00 Fluconazole (Diflucan) 200 mg DAILY PO Last administered on 03/29/16 09:38; Admin Dose 200 MG; Start 03/28/16 at 17:00; Stop 04/11/16 at 16:59 Polyethylene Glycol 17 gm 17 gm DAILY PRN PO CONSTIPATION; Start 03/28/16 at 21 :00 Ertapenem/Sodium Chloride (Invanz/NS) 100 ml @ 200 mls/hr Q24H IVPB ; Start at 13:15 ILIANA CHAVIRA NP Mar 29, 2016 13:57
[2016-03-29] MEDS: ERTAPENEM SODIUM 1 GM in SOD CHLORIDE 0.9% 100 ML IVPB SCH (14:31)
[2016-03-29 14:45] LABS: BASOPHILS % 0.6 % (0.0-2.0); EOSINOPHILS # 0.1 10^3/ul (0.0-0.5); EOSINOPHILS % 2.5 % (0.0-7.0); HEMATOCRIT 36.1 % (37.0-47.0); HEMOGLOBIN 11.9 g/dl (12.0-16.0); LYMPHOCYTES # 1.9 10^3/ul (0.8-2.9); LYMPHOCYTES % 32.8 % (15.0-51.0); MEAN CORPUSCULAR HEMOGLOBIN 31.9 pg (29.0-33.0); MEAN CORPUSCULAR VOLUME 96.7 fl (82.0-101.0); MEAN PLATELET VOLUME 7.3 fl (7.4-10.4); MONOCYTE # 0.7 10^3/ul (0.3-0.9); MONOCYTES % 12.5 % (0.0-11.0); NEUTROPHILS % 51.6 % (39.0-77.0); PLATELET COUNT 272 10^3/UL (140-440); RED BLOOD COUNT 3.73 10^6/ul (4.20-5.40); RED CELL DISTRIBUTION WIDTH 13.2 % (11.5-14.5); UNCORRECTED WBC 5.8 10^3/ul (4.8-10.8); WHITE BLOOD COUNT 5.8 10^3/ul (4.8-10.8)
[2016-03-29 14:55] LABS: CONDITION 1
[2016-03-29 15:03] LABS: POTASSIUM 4.2 mmol/L (3.5-5.1)
[2016-03-29 15:05] LABS: CREATININE 0.61 mg/dl (0.44-1.00)
[2016-03-29 15:06] LABS: CALCIUM 9.5 mg/dl (8.4-10.2)
--- NOTE | 2016-03-29 16:26 | RADRPT ---
PROCEDURE: XR Left Tibia and Fibula. CLINICAL INDICATION: Left lower leg pain. TECHNIQUE: Two views. Frontal and lateral. COMPARISON: No prior studies are available for comparison. FINDINGS: There are old healed fractures of the mid to distal shaft of the tibia and proximal shaft of the fib guilherme with satisfactory alignment. There is no new fracture and there is no dislocation. The soft tissues are normal. There are severe degenerative changes of the left knee joint with joint space narrowing, osteophytes , and deformity. There is a sclerotic lesion in the proximal shaft of the tibia consistent with a bone infarct or enc hondroma. There is no lytic lesion. There is no radiopaque foreign body. IMPRESSION: 1. Old healed fractures of the tibia and fibula with satisfactory alignment. 2. No new fracture. 3. Severe degenerative changes of the left knee joint. 4. 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 5. Otherwise unremarkable study. RPTAT: QQ .Montrell Aguilera MD, MD Date Time Electronically viewed and signed by .Montrell Aguilera MD, on 03/29/2016 16:26 .R/
[2016-03-29] MEDS ORDERED: MAGNESIUM CITRATE 300 ML BTL PO ONE (16:30)
--- NOTE | 2016-03-29 16:38 | RADRPT ---
PROCEDURE: CT Abdomen and Pelvis without contrast. CLINICAL INDICATION: Abdominal and pelvic pain. TECHNIQUE: CT scan of the abdomen and pelvis without contrast was performed. Coronal and sagittal reformatted images were obtained from the axial source images. Images were reviewed on a high-resolu [employer] PACS workstation. Total exam DLP is 1130.71 mGy-cm. CTDIvol is 19.17 mGy. One or more of the following dose reduction techniques were used: Automated exposure control, adjustment of the mA and/ or kV according to patient size, use of iterative reconstruction technique. COMPARISON: None. FINDINGS: There is mild atelectasis or scarring at both lung bases posteriorly. The lung bases are otherwise normal. There is no pleural effusion or pericardial effusion. There is calcification of the mitral valve annulus. The liver is normal in size and attenuation. There is no focal hepatic lesion. Gallstones are present in the gallbladder. There is no gallbladder wall thickening and there is no fluid around the gallbladder. The spleen is normal in size. There is no focal splenic lesion. Both adrenals are normal with no enlargement or mass. The pancreas is unremarkable with no mass or evidence of pancreatitis. There is no renal mass or hydronephrosis. There is a nonobstructing 0.3 cm calculus in the mid righ t kidney. There is a nonobstructing calculus in the upper left kidney measuring 1.3 x 1.2 cm with a n adjacent nonobstructing calculus measuring 0.5 x 0.7 cm. There is no ureteral calculus on either side. The abdominal aorta is not dilated. There is calcification in the aorta consistent with atheroscler osis. There is no retroperitoneal lymphadenopathy or mass. There is no pelvic lymphadenopathy. There are are multiple fibroids in the uterus with some partial ly calcified. There is no other pelvic mass. The bladder and distal ureters are normal. The appendix is well seen and appears normal. There is a large amount of stool in the rectosigmoid consistent with constipation. The bowel and me sentery are otherwise normal. There is no free fluid or free gas. There are degenerative changes of the spine. There is no fracture or lytic lesion. There is mild t horacic scoliosis convex right and lumbar scoliosis convex left. There are bilateral total hip arth roplasties. IMPRESSION: 1. Mild atelectasis or scarring at the lung bases posteriorly. 2. Calcification of the mitral valve annulus. 3. Gallstones in the gallbladder. No evidence of cholecystitis. 4. Nonobstructing bilateral renal calculi. 5. Atherosclerosis. 6. Multiple fibroids in the uterus with some partially calcified. 7. Normal appendix. 8. Constipation with large amount of stool in the rectosigmoid. 9. Degenerative changes of the spine. 10. Thoracic scoliosis convex right and lumbar scoliosis convex left. 11. Bilateral total hip arthroplasties. 12. Otherwise unremarkable study. RPTAT: QQ .Montrell Aguilera MD, MD Date Time Electronically viewed and signed by .Montrell Aguilera MD, on 03/29/2016 16:37 .R/
[2016-03-29 20:00] VITALS: BP 131/61; RESP 20
[2016-03-29] MEDS: DOCUSATE SODIUM 100 MG CAP PO SCH (20:31)
[2016-03-29] MEDS: LORAZEPAM 2 MG INJ IV PRN (20:46)
[2016-03-30] MEDS: morphine 2 MG INJ IV PRN ×3 (00:12→17:29)
[2016-03-30] MEDS: ACYCLOVIR TOP SCH ×6 (01:07→21:55)
[2016-03-30] MEDS: ALPRAZOLAM 0.25 MG TAB PO PRN (01:08)
[2016-03-30] MEDS: PANTOPRAZOLE (EC) 40 MG TAB PO SCH (06:15)
[2016-03-30 07:51] VITALS: BP 119/59; RESP 16
[2016-03-30] MEDS: DOCUSATE SODIUM 100 MG CAP PO SCH ×2 (09:00→21:00)
[2016-03-30] MEDS: FLUCONAZOLE 200 MG TAB PO SCH (09:19)
[2016-03-30] MEDS: ACYCLOVIR 400 MG TAB PO SCH ×3 (09:19→21:55)
--- NOTE | 2016-03-30 09:57 | PN ---
Date/Time of Note Date/Time of Note DATE: 03/30/16 TIME: 09:54 Assessment/Plan VTE Prophylaxis VTE Prophylaxis Intervention: heparin Lines/Catheters IV Catheter Type (from Nrsg): Saline Lock Urinary Cath still in place: No Assessment/Plan Assessment/Plan 65 yo F with multiple non specific issues managed as follows 1. Herpes Genitalis: Continue Acyclovir / ID managing / pain control / continue supportive care 2. Mood disorder : ?Frustration versus depression Mood still extremal labile / Patient refused Telepsych / wants physician in person / start Seroquel 3. 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 Abd distention and discomfort 2/2 Constipation Had small BM yesterday / still feels full / refusing colace /repeat mag citrate and start scheduled lactulose 5. Morganella Morgagni / Yeast UTI Continue Levaquin /. ID managing abx 6, Chronic RA + diffuse degenerative joint disease on imaging Patient was not on DMARDS and was only on pain meds at home / continue home regimen and prednisone for now 7. PreDM A1c 6,2 good fasting levels in-house / continue close monitoring Patient wants to go to [facility]/ working on placement Further evaluation and treatment will be based on clinical course Full discussion with care team done. All questions Answered Please also see orders. Subjective 24 Hr Interval Summary Free Text/Dictation Patient seen and examined. Requesting to be transferred to [facility] We discussed CT findings Still very labile with her mood Now complaining of L hip pain reporting she never had problems with her L ankle Exam/Review of Systems Vital Signs Vitals Vital Signs Date Time Temp Pulse Resp B/P Pulse Ox O2 Delivery O2 Flow Rate FiO2 03/30/16 07:51 98.5 89 16 119/59 94 Intake and Output 03/29/16 03/29/16 03/30/16 15:00 23:00 07:00 Intake Total 940 ml 400 ml Output Total 0 ml Balance 940 ml 400 ml Exam Constitutional: alert, distress, frail Psych: anxiety, depression Head: normocephalic Eyes: PERRL, No icteric ENMT: mucosa pink and moist Neck: non-tender, supple Respiratory: clear to auscultation, diminished breath sounds Cardiovascular: regular rate and rhythm, No murmurs/extra sounds Gastrointestinal: bowel sounds, non-tender, other (full / ?obese), soft, No ascites Genitourinary - Female: other (diffuse marcelina labial swelling swelling with small fluid filled blisters sparsely scattered around her labia bilaterally), No nl adnexae Musculoskeletal: other (patient has stigmata of chronic RA in fingers and hands ) Extremities: other (L foot indeed externally rotated at rest and difficult to internally rotate without pain at the hip), No edema Skin: rash or lesions Results Result Diagram: 03/29/16 1340 03/29/16 1340 Results 24 hrs Laboratory Tests Test 03/29/16 13:40 Anion Gap 16 Basophils # 0.0 Basophils % 0.6 Blood Morphology Comment Blood Urea Nitrogen 12 Calcium Level 9.5 Carbon Dioxide Level 26 Chloride Level 103 Creatinine 0.61 Eosinophils # 0.1 Eosinophils % 2.5 Glucose Level 84 # HIV (1&2) Antibody NEGATIVE Hematocrit 36.1 L Hemoglobin 11.9 L Lymphocytes # 1.9 Lymphocytes % 32.8 Mean Corpuscular Hemoglobin 31.9 Mean Corpuscular Hemoglobin Concent 33.0 Mean Corpuscular Volume 96.7 Mean Platelet Volume 7.3 L Monocytes # 0.7 Monocytes % 12.5 H Neutrophils # 3.0 Neutrophils % 51.6 Nucleated Red Blood Cells # 0.0 Nucleated Red Blood Cells % 0.0 Platelet Count 272 Potassium Level 4.2 Red Blood Count 3.73 L Red Cell Distribution Width 13.2 Sodium Level 141 White Blood Count 5.8 Medications Medications Current Medications Ondansetron HCl (Zofran Inj) 4 mg Q6H PRN IV NAUSEA AND/OR VOMITING Last administered on 03/26/16 08:15; Admin Dose 4 MG; Start 03/26/16 at 05:00 Acetaminophen (Tylenol Tab) 650 mg Q6H PRN PO PAIN AND OR ELEVATED TEMP; Start 03/26/16 at 05:00 Heparin Sodium (Porcine) (Heparin (5000 Units/0.5 ml)) 5,000 unit BID SC Last administered on 03/29/16 20:33; Admin Dose 5,000 UNIT; Start 03/26/16 at 09:00 Pantoprazole (Protonix Tab) 40 mg DAILY@06 PO Last administered on 03/30/16 06 :15; Admin Dose 40 MG; Start 03/27/16 at 06:00 Acetaminophen/ Hydrocodone Bitart ([place] (7.5-325)) 1 tab Q4H PRN PO PAIN LEVEL 8-10; Start 03/26/16 at 13:00 Morphine Sulfate (morphine) 2 mg Q4H PRN IV PAIN Last administered on 06:46; Admin Dose 2 MG; Start 03/26/16 at 16:00 Loperamide HCl (Imodium Cap) 2 mg QID PRN PO DIARRHEA; Start 03/27/16 at 09:30 Zolpidem Tartrate (Ambien) 5 mg HS PRN PO INSOMNIA Last administered on 23:13; Admin Dose 5 MG; Start 03/27/16 at 09:30 Lorazepam (Ativan) 0.5 mg Q6H PRN IV AGITATION/ANXIETY Last administered on 20:46; Admin Dose 0.5 MG; Start 03/27/16 at 10:00 Acyclovir (Zovirax) 400 mg TID PO Last administered on 03/30/16 09:19; Admin Dose 400 MG; Start 03/27/16 at 21:00; Stop 04/03/16 at 21:00 Acyclovir (Zovirax Cr) 1 applic Q4 TOP Last administered on 03/30/16 09:19; Admin Dose 1 APPLIC; Start 03/27/16 at 17:00; Stop 04/03/16 at 17:00 Cyclobenzaprine HCl (Flexeril) 5 mg TID PRN PO msc spasms; Start 03/28/16 at 17 :00 Alprazolam (Xanax) 0.25 mg Q8H PRN PO ANXIETY Last administered on 03/30/16 01 :08; Admin Dose 0.25 MG; Start 03/28/16 at 17:00 Fluconazole (Diflucan) 200 mg DAILY PO Last administered on 03/30/16 09:19; Admin Dose 200 MG; Start 03/28/16 at 17:00; Stop 04/11/16 at 16:59 Polyethylene Glycol 17 gm 17 gm DAILY PRN PO CONSTIPATION; Start 03/28/16 at 21 :00 Ertapenem/Sodium Chloride (Invanz/NS) 100 ml @ 200 mls/hr Q24H IVPB Last administered on 03/29/16 14:31; Admin Dose 200 MLS/HR; Start 03/29/16 at 13:15 Docusate Sodium (Colace) 100 mg BID PO Last administered on 03/29/16 20:31; Admin Dose 100 MG; Start 03/29/16 at 21:00 Procedures Procedures PROCEDURE: CT Abdomen and Pelvis without contrast. CLINICAL INDICATION: Abdominal and pelvic pain. TECHNIQUE: CT scan of the abdomen and pelvis without contrast was performed. Coronal and sagittal reformatted images were obtained from the axial source images. Images were reviewed on a high-resolution PACS workstation. Total exam DLP is 1130.71 mGy-cm. CTDIvol is 19.17 mGy. One or more of the following dose reduction techniques were used: Automated exposure control, adjustment of the mA and/or kV according to patient size, use of iterative reconstruction technique. COMPARISON: None. FINDINGS: There is mild atelectasis or scarring at both lung bases posteriorly. The lung bases are otherwise normal. There is no pleural effusion or pericardial effusion. There is calcification of the mitral valve annulus. The liver is normal in size and attenuation. There is no focal hepatic lesion. Gallstones are present in the gallbladder. There is no gallbladder wall thickening and there is no fluid around the gallbladder. The spleen is normal in size. There is no focal splenic lesion. Both adrenals are normal with no enlargement or mass. The pancreas is unremarkable with no mass or evidence of pancreatitis. There is no renal mass or hydronephrosis. There is a nonobstructing 0.3 cm calculus in the mid right kidney. There is a nonobstructing calculus in the upper left kidney measuring 1.3 x 1.2 cm with an adjacent nonobstructing calculus measuring 0.5 x 0.7 cm. There is no ureteral calculus on either side. The abdominal aorta is not dilated. There is calcification in the aorta consistent with atherosclerosis. There is no retroperitoneal lymphadenopathy or mass. There is no pelvic lymphadenopathy. There are are multiple fibroids in the uterus with some partially calcified. There is no other pelvic mass. The bladder and distal ureters are normal. The appendix is well seen and appears normal. There is a large amount of stool in the rectosigmoid consistent with constipation. The bowel and mesentery are otherwise normal. There is no free fluid or free gas. There are degenerative changes of the spine. There is no fracture or lytic lesion. There is mild thoracic scoliosis convex right and lumbar scoliosis convex left. There are bilateral total hip arthroplasties. IMPRESSION: 1. Mild atelectasis or scarring at the lung bases posteriorly. 2. Calcification of the mitral valve annulus. 3. Gallstones in the gallbladder. No evidence of cholecystitis. 4. Nonobstructing bilateral renal calculi. 5. Atherosclerosis. 6. Multiple fibroids in the uterus with some partially calcified. 7. Normal appendix. 8. Constipation with large amount of stool in the rectosigmoid. 9. Degenerative changes of the spine. 10. Thoracic scoliosis convex right and lumbar scoliosis convex left. 11. Bilateral total hip arthroplasties. 12. Otherwise unremarkable study. RPTAT: QQ .Montrell Aguilera MD, MD Date Time Electronically viewed and signed by .Montrell Aguilera MD, MD on 03/29/2016 16:37 PROCEDURE: XR Left Tibia and Fibula. CLINICAL INDICATION: Left lower leg pain. TECHNIQUE: Two views. Frontal and lateral. COMPARISON: No prior studies are available for comparison. FINDINGS: There are old healed fractures of the mid to distal shaft of the tibia and proximal shaft of the fibula with satisfactory alignment. There is no new fracture and there is no dislocation. The soft tissues are normal. There are severe degenerative changes of the left knee joint with joint space narrowing, osteophytes, and deformity. There is a sclerotic lesion in the proximal shaft of the tibia consistent with a bone infarct or enchondroma. There is no lytic lesion. There is no radiopaque foreign body. IMPRESSION: 1. Old healed fractures of the tibia and fibula with satisfactory alignment. 2. No new fracture. 3. Severe degenerative changes of the left knee joint. 4. 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 5. Otherwise unremarkable study. RPTAT: QQ .Montrell Aguilera MD, MD Date Time Electronically viewed and signed by .Montrell Aguilera MD, MD on 03/29/2016 16:26 .Analia/ EDMOND MURRAY Mar 30, 2016 09:57 EDMOND MURRAY Mar 30, 2016 09:57
[2016-03-30] MEDS: HEPARIN 5,000 UNIT/0.5 ML SYG SC SCH ×2 (11:34→22:00)
[2016-03-30] MEDS: QUETIAPINE 25 MG TAB PO SCH ×2 (12:18→21:55)
[2016-03-30 14:17] LABS: BASOPHILS % 0.8 % (0.0-2.0); CONDITION 1; EOSINOPHILS # 0.1 10^3/ul (0.0-0.5); EOSINOPHILS % 2.5 % (0.0-7.0); HEMATOCRIT 37.8 % (37.0-47.0); HEMOGLOBIN 12.3 g/dl (12.0-16.0); LYMPHOCYTES # 1.8 10^3/ul (0.8-2.9); LYMPHOCYTES % 34.7 % (15.0-51.0); MEAN CORPUSCULAR HEMOGLOBIN 31.3 pg (29.0-33.0); MEAN CORPUSCULAR HGB CONC 32.5 g/dl (32.0-37.0); MEAN CORPUSCULAR VOLUME 96.4 fl (82.0-101.0); MEAN PLATELET VOLUME 7.2 fl (7.4-10.4); MONOCYTE # 0.5 10^3/ul (0.3-0.9); MONOCYTES % 10.4 % (0.0-11.0); NEUTROPHIL # 2.7 10^3/ul (1.6-7.5); NEUTROPHILS % 51.6 % (39.0-77.0); PLATELET COUNT 272 10^3/UL (140-440); RED BLOOD COUNT 3.92 10^6/ul (4.20-5.40); RED CELL DISTRIBUTION WIDTH 13.2 % (11.5-14.5); UNCORRECTED WBC 5.3 10^3/ul (4.8-10.8); WHITE BLOOD COUNT 5.3 10^3/ul (4.8-10.8)
[2016-03-30 14:26] LABS: POTASSIUM 4.2 mmol/L (3.5-5.1)
[2016-03-30 14:28] LABS: CREATININE 0.61 mg/dl (0.44-1.00)
[2016-03-30 14:29] LABS: CALCIUM 9.3 mg/dl (8.4-10.2)
--- NOTE | 2016-03-30 14:53 | CONS ---
Date/Time of Note Date/Time of Note DATE: 03/30/16 TIME: 14:52 Assessment/Plan Assessment/Plan Chief Complaint/Hosp Course Subjective: No acute changes per report, sleeping, looks comfortable, no fevers MICROBIOLOGY: Urine culture is growing MDR Morganella/E coli Abx: Invanz, Acyclovir PHYSICAL EXAMINATION: GENERAL: Chronically ill-appearing, elderly woman who is in no distress. HEENT: Head atraumatic, normocephalic. Sclerae anicteric. Buccal mucosa dry. NECK: Supple. Trachea midline. CHEST: Rise symmetrical. Breath sounds diminished to bases. HEART: S1, S2. ABDOMEN: Soft. Bowel tones present. EXTREMITIES: Without cyanosis. ASSESSMENT: 1. Vaginal herpes on acyclovir. 2. Mild gram-negative kevin urinary tract infection. 3. Rheumatoid arthritis. 4. Chronic pain syndrome. PLAN: Remains stable, continue abx/Acyclovir DW staff Problems: Consultation Date/Type/Reason Admit Date/Time Mar 26, 2016 at 02:34 Type of Consultation: id Exam/Review of Systems Vital Signs Vitals Vital Signs Date Time Temp Pulse Resp B/P Pulse Ox O2 Delivery O2 Flow Rate FiO2 03/30/16 07:51 98.5 89 16 119/59 94 Intake and Output 03/29/16 03/29/16 03/30/16 15:00 23:00 07:00 Intake Total 940 ml 400 ml Output Total 0 ml Balance 940 ml 400 ml Results Result Diagram: 03/30/16 1340 03/30/16 1340 Results 24 hrs Laboratory Tests Test 03/30/16 13:40 Anion Gap 18 H Basophils # 0.0 Basophils % 0.8 Blood Morphology Comment Blood Urea Nitrogen 12 Calcium Level 9.3 Carbon Dioxide Level 27 Chloride Level 99 Creatinine 0.61 Eosinophils # 0.1 Eosinophils % 2.5 Glucose Level 138 # Hematocrit 37.8 Hemoglobin 12.3 Lymphocytes # 1.8 Lymphocytes % 34.7 Mean Corpuscular Hemoglobin 31.3 Mean Corpuscular Hemoglobin Concent 32.5 Mean Corpuscular Volume 96.4 Mean Platelet Volume 7.2 L Monocytes # 0.5 Monocytes % 10.4 Neutrophils # 2.7 Neutrophils % 51.6 Nucleated Red Blood Cells # 0.0 Nucleated Red Blood Cells % 0.0 Platelet Count 272 Potassium Level 4.2 Red Blood Count 3.92 L Red Cell Distribution Width 13.2 Sodium Level 140 White Blood Count 5.3 Medications Medications Current Medications Ondansetron HCl (Zofran Inj) 4 mg Q6H PRN IV NAUSEA AND/OR VOMITING Last administered on 03/26/16 08:15; Admin Dose 4 MG; Start 03/26/16 at 05:00 Acetaminophen (Tylenol Tab) 650 mg Q6H PRN PO PAIN AND OR ELEVATED TEMP; Start 03/26/16 at 05:00 Heparin Sodium (Porcine) (Heparin (5000 Units/0.5 ml)) 5,000 unit BID SC Last administered on 03/30/16 11:34; Admin Dose 5,000 UNIT; Start 03/26/16 at 09:00 Pantoprazole (Protonix Tab) 40 mg DAILY@06 PO Last administered on 03/30/16 06 :15; Admin Dose 40 MG; Start 03/27/16 at 06:00 Acetaminophen/ Hydrocodone Bitart ([place] (7.5-325)) 1 tab Q4H PRN PO PAIN LEVEL 8-10; Start 03/26/16 at 13:00 Morphine Sulfate (morphine) 2 mg Q4H PRN IV PAIN Last administered on 06:46; Admin Dose 2 MG; Start 03/26/16 at 16:00 Loperamide HCl (Imodium Cap) 2 mg QID PRN PO DIARRHEA; Start 03/27/16 at 09:30 Zolpidem Tartrate (Ambien) 5 mg HS PRN PO INSOMNIA Last administered on 23:13; Admin Dose 5 MG; Start 03/27/16 at 09:30 Lorazepam (Ativan) 0.5 mg Q6H PRN IV AGITATION/ANXIETY Last administered on 20:46; Admin Dose 0.5 MG; Start 03/27/16 at 10:00 Acyclovir (Zovirax) 400 mg TID PO Last administered on 03/30/16 12:18; Admin Dose 400 MG; Start 03/27/16 at 21:00; Stop 04/03/16 at 21:00 Acyclovir (Zovirax Cr) 1 applic Q4 TOP Last administered on 03/30/16 12:18; Admin Dose 1 APPLIC; Start 03/27/16 at 17:00; Stop 04/03/16 at 17:00 Cyclobenzaprine HCl (Flexeril) 5 mg TID PRN PO msc spasms; Start 03/28/16 at 17 :00 Alprazolam (Xanax) 0.25 mg Q8H PRN PO ANXIETY Last administered on 03/30/16 01 :08; Admin Dose 0.25 MG; Start 03/28/16 at 17:00 Fluconazole (Diflucan) 200 mg DAILY PO Last administered on 03/30/16 09:19; Admin Dose 200 MG; Start 03/28/16 at 17:00; Stop 04/11/16 at 16:59 Polyethylene Glycol 17 gm 17 gm DAILY PRN PO CONSTIPATION; Start 03/28/16 at 21 :00 Ertapenem/Sodium Chloride (Invanz/NS) 100 ml @ 200 mls/hr Q24H IVPB Last administered on 03/29/16 14:31; Admin Dose 200 MLS/HR; Start 03/29/16 at 13:15 Docusate Sodium (Colace) 100 mg BID PO Last administered on 03/29/16 20:31; Admin Dose 100 MG; Start 03/29/16 at 21:00 Quetiapine Fumarate (Seroquel) 25 mg BID PO Last administered on 03/30/16 12: 18; Admin Dose 25 MG; Start 03/30/16 at 10:00 ILIANA CHAVIRA NP Mar 30, 2016 14:53
[2016-03-30] MEDS: ERTAPENEM SODIUM 1 GM in SOD CHLORIDE 0.9% 100 ML IVPB SCH (16:17)
[2016-03-30] MEDS ORDERED: MAGNESIUM CITRATE 300 ML BTL PO ONE (18:30)
[2016-03-30 20:25] VITALS: BP 106/53; RESP 20
[2016-03-30] MEDS: LACTULOSE 30ML CUP PO SCH (21:00)
[2016-03-31] MEDS: ACYCLOVIR TOP SCH ×6 (01:21→20:29)
[2016-03-31] MEDS: PANTOPRAZOLE (EC) 40 MG TAB PO SCH (05:43)
[2016-03-31 06:05] LABS: BASOPHILS % 0.5 % (0.0-2.0); EOSINOPHILS # 0.1 10^3/ul (0.0-0.5); EOSINOPHILS % 3.1 % (0.0-7.0); HEMATOCRIT 36.9 % (37.0-47.0); HEMOGLOBIN 12.4 g/dl (12.0-16.0); LYMPHOCYTES # 2.1 10^3/ul (0.8-2.9); LYMPHOCYTES % 45.9 % (15.0-51.0); MEAN CORPUSCULAR HEMOGLOBIN 32.2 pg (29.0-33.0); MEAN CORPUSCULAR HGB CONC 33.5 g/dl (32.0-37.0); MEAN PLATELET VOLUME 7.3 fl (7.4-10.4); MONOCYTE # 0.5 10^3/ul (0.3-0.9); NEUTROPHIL # 1.8 10^3/ul (1.6-7.5); NEUTROPHILS % 40.5 % (39.0-77.0); PLATELET COUNT 267 10^3/UL (140-440); RED BLOOD COUNT 3.84 10^6/ul (4.20-5.40); RED CELL DISTRIBUTION WIDTH 13.4 % (11.5-14.5); UNCORRECTED WBC 4.5 10^3/ul (4.8-10.8); WHITE BLOOD COUNT 4.5 10^3/ul (4.8-10.8)
[2016-03-31 06:09] LABS: POTASSIUM 4.4 mmol/L (3.5-5.1)
[2016-03-31 06:11] LABS: CREATININE 0.43 mg/dl (0.44-1.00)
[2016-03-31 06:39] LABS: CONDITION 1
[2016-03-31 08:00] VITALS: BP 114/62; RESP 90
--- NOTE | 2016-03-31 08:41 | PN ---
Date/Time of Note Date/Time of Note DATE: 03/31/16 TIME: 08:35 Assessment/Plan VTE Prophylaxis VTE Prophylaxis Intervention: heparin Lines/Catheters IV Catheter Type (from Nrsg): Saline Lock Urinary Cath still in place: No Assessment/Plan Assessment/Plan 65 yo F with multiple non specific issues managed as follows 1. Herpes Genitalis: Continue Acyclovir / ID managing / pain control / continue supportive care 2. Mood disorder : ?Frustration versus depression Mood still extremal labile / Patient refused Telepsych / wants physician in person / start Seroquel 3. 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 Abd distention and discomfort 2/2 Constipation Constipation now resolved / will encourage patient to remain on low dose colace 5. Morganella Morgagni / Yeast UTI Continue Levaquin /. ID managing abx 6, Chronic RA + diffuse degenerative joint disease on imaging Patient was not on DMARDS and was only on pain meds at home / continue home regimen and prednisone for now 7. PreDM A1c 6,2 good fasting levels in-house / continue close monitoring Patient wants to go to [facility]/ working on placement Further evaluation and treatment will be based on clinical course Full discussion with care team done. All questions Answered Please also see orders. Subjective 24 Hr Interval Summary Free Text/Dictation Patient seen and examined. Exam/Review of Systems Vital Signs Vitals Vital Signs Date Time Temp Pulse Resp B/P Pulse Ox O2 Delivery O2 Flow Rate FiO2 03/31/16 08:00 96.9 90 90 114/62 96 Intake and Output 03/30/16 03/30/16 03/31/16 15:00 23:00 07:00 Intake Total 2200 ml 400 ml Balance 2200 ml 400 ml Exam Constitutional: alert, distress, frail Psych: anxiety, depression Head: normocephalic Eyes: PERRL, No icteric ENMT: mucosa pink and moist Neck: non-tender, supple Respiratory: clear to auscultation, diminished breath sounds Cardiovascular: regular rate and rhythm, No murmurs/extra sounds Gastrointestinal: bowel sounds, non-tender, other (full / ?obese), soft, No ascites Genitourinary - Female: other (improved marcelina labial swelling swelling with small fluid filled blisters sparsely scattered around her labia bilaterally), No nl adnexae Musculoskeletal: other (patient has stigmata of chronic RA in fingers and hands ) Extremities: other (L foot indeed externally rotated at rest and difficult to internally rotate without pain at the hip), No edema Skin: rash or lesions Results Result Diagram: 03/31/16 0510 03/31/16 0510 Results 24 hrs Laboratory Tests Test 03/30/16 13:40 03/31/16 05:10 Anion Gap 18 H 16 Basophils # 0.0 0.0 Basophils % 0.8 0.5 Blood Morphology Comment Blood Urea Nitrogen 12 12 Calcium Level 9.3 9.0 Carbon Dioxide Level 27 29 Chloride Level 99 103 Creatinine 0.61 0.43 L Eosinophils # 0.1 0.1 Eosinophils % 2.5 3.1 Glucose Level 138 # 125 Hematocrit 37.8 36.9 L Hemoglobin 12.3 12.4 Lymphocytes # 1.8 2.1 Lymphocytes % 34.7 45.9 Mean Corpuscular Hemoglobin 31.3 32.2 Mean Corpuscular Hemoglobin Concent 32.5 33.5 Mean Corpuscular Volume 96.4 96.0 Mean Platelet Volume 7.2 L 7.3 L Monocytes # 0.5 0.5 Monocytes % 10.4 10.0 Neutrophils # 2.7 1.8 Neutrophils % 51.6 40.5 Nucleated Red Blood Cells # 0.0 0.0 Nucleated Red Blood Cells % 0.0 0.0 Platelet Count 272 267 Potassium Level 4.2 4.4 Red Blood Count 3.92 L 3.84 L Red Cell Distribution Width 13.2 13.4 Sodium Level 140 144 White Blood Count 5.3 4.5 L Medications Medications Current Medications Ondansetron HCl (Zofran Inj) 4 mg Q6H PRN IV NAUSEA AND/OR VOMITING Last administered on 03/26/16 08:15; Admin Dose 4 MG; Start 03/26/16 at 05:00 Acetaminophen (Tylenol Tab) 650 mg Q6H PRN PO PAIN AND OR ELEVATED TEMP; Start 03/26/16 at 05:00 Heparin Sodium (Porcine) (Heparin (5000 Units/0.5 ml)) 5,000 unit BID SC Last administered on 03/30/16 22:00; Admin Dose 5,000 UNIT; Start 03/26/16 at 09:00 Pantoprazole (Protonix Tab) 40 mg DAILY@06 PO Last administered on 03/31/16 05 :43; Admin Dose 40 MG; Start 03/27/16 at 06:00 Acetaminophen/ Hydrocodone Bitart ([place] (7.5-325)) 1 tab Q4H PRN PO PAIN LEVEL 8-10; Start 03/26/16 at 13:00 Loperamide HCl (Imodium Cap) 2 mg QID PRN PO DIARRHEA Last administered on 03/30 23:02; Admin Dose 2 MG; Start 03/27/16 at 09:30 Zolpidem Tartrate (Ambien) 5 mg HS PRN PO INSOMNIA Last administered on 23:13; Admin Dose 5 MG; Start 03/27/16 at 09:30 Acyclovir (Zovirax) 400 mg TID PO Last administered on 03/30/16 21:55; Admin Dose 400 MG; Start 03/27/16 at 21:00; Stop 04/03/16 at 21:00 Acyclovir (Zovirax Cr) 1 applic Q4 TOP Last administered on 03/31/16 05:45; Admin Dose 1 APPLIC; Start 03/27/16 at 17:00; Stop 04/03/16 at 17:00 Cyclobenzaprine HCl (Flexeril) 5 mg TID PRN PO msc spasms; Start 03/28/16 at 17 :00 Alprazolam (Xanax) 0.25 mg Q8H PRN PO ANXIETY Last administered on 03/30/16 01 :08; Admin Dose 0.25 MG; Start 03/28/16 at 17:00 Fluconazole (Diflucan) 200 mg DAILY PO Last administered on 03/30/16 09:19; Admin Dose 200 MG; Start 03/28/16 at 17:00; Stop 04/11/16 at 16:59 Polyethylene Glycol 17 gm 17 gm DAILY PRN PO CONSTIPATION; Start 03/28/16 at 21 :00 Ertapenem/Sodium Chloride (Invanz/NS) 100 ml @ 200 mls/hr Q24H IVPB Last administered on 03/30/16 16:17; Admin Dose 200 MLS/HR; Start 03/29/16 at 13:15 Docusate Sodium (Colace) 100 mg BID PO Last administered on 03/29/16 20:31; Admin Dose 100 MG; Start 03/29/16 at 21:00 Quetiapine Fumarate (Seroquel) 25 mg BID PO Last administered on 03/30/16 21: 55; Admin Dose 25 MG; Start 03/30/16 at 10:00 Lactulose (Enulose) 20 gm BID PO ; Start 03/30/16 at 21:00 EDMOND MURRAY Mar 31, 2016 08:40
[2016-03-31] MEDS: DOCUSATE SODIUM 100 MG CAP PO SCH ×2 (09:00→20:40)
[2016-03-31] MEDS: LACTULOSE 30ML CUP PO SCH ×2 (09:00→20:40)
[2016-03-31] MEDS: ACYCLOVIR 400 MG TAB PO SCH ×3 (09:34→20:29)
[2016-03-31] MEDS: FLUCONAZOLE 200 MG TAB PO SCH (09:34)
[2016-03-31] MEDS: QUETIAPINE 25 MG TAB PO SCH ×2 (09:34→20:29)
[2016-03-31] MEDS: HYDROCODONE/APAP (7.5/325) TAB PO PRN ×3 (09:39→23:47)
[2016-03-31] MEDS: HEPARIN 5,000 UNIT/0.5 ML SYG SC SCH ×2 (10:18→20:40)
[2016-03-31] MEDS ORDERED: VITAMIN A & D 5 GM OINT PACKET TOP ONE (10:47)
--- NOTE | 2016-03-31 13:53 | CONS ---
Date/Time of Note Date/Time of Note DATE: 03/31/16 TIME: 13:52 Assessment/Plan Assessment/Plan Chief Complaint/Hosp Course Subjective: No acute changes per report, looks comfortable, no fevers MICROBIOLOGY: Urine culture is growing MDR Morganella/E coli Abx: Invanz, Acyclovir PHYSICAL EXAMINATION: GENERAL: Chronically ill-appearing, elderly woman who is in no distress. HEENT: Head atraumatic, normocephalic. Sclerae anicteric. Buccal mucosa dry. NECK: Supple. Trachea midline. CHEST: Rise symmetrical. Breath sounds diminished to bases. HEART: S1, S2. ABDOMEN: Soft. Bowel tones present. EXTREMITIES: Without cyanosis. ASSESSMENT: 1. Vaginal herpes on acyclovir. 2. Mild gram-negative kevin urinary tract infection. 3. Rheumatoid arthritis. 4. Chronic pain syndrome. PLAN: Remains stable, continue abx/Acyclovir DW staff Problems: Consultation Date/Type/Reason Admit Date/Time Mar 26, 2016 at 02:34 Type of Consultation: id Exam/Review of Systems Vital Signs Vitals Vital Signs Date Time Temp Pulse Resp B/P Pulse Ox O2 Delivery O2 Flow Rate FiO2 03/31/16 08:00 96.9 90 90 114/62 96 Intake and Output 03/30/16 03/30/16 03/31/16 15:00 23:00 07:00 Intake Total 2200 ml 400 ml Balance 2200 ml 400 ml Results Result Diagram: 03/31/16 0510 03/31/16 0510 Results 24 hrs Laboratory Tests Test 03/31/16 05:10 Anion Gap 16 Basophils # 0.0 Basophils % 0.5 Blood Morphology Comment Blood Urea Nitrogen 12 Calcium Level 9.0 Carbon Dioxide Level 29 Chloride Level 103 Creatinine 0.43 L Eosinophils # 0.1 Eosinophils % 3.1 Glucose Level 125 Hematocrit 36.9 L Hemoglobin 12.4 Lymphocytes # 2.1 Lymphocytes % 45.9 Mean Corpuscular Hemoglobin 32.2 Mean Corpuscular Hemoglobin Concent 33.5 Mean Corpuscular Volume 96.0 Mean Platelet Volume 7.3 L Monocytes # 0.5 Monocytes % 10.0 Neutrophils # 1.8 Neutrophils % 40.5 Nucleated Red Blood Cells # 0.0 Nucleated Red Blood Cells % 0.0 Platelet Count 267 Potassium Level 4.4 Red Blood Count 3.84 L Red Cell Distribution Width 13.4 Sodium Level 144 White Blood Count 4.5 L Medications Medications Current Medications Ondansetron HCl (Zofran Inj) 4 mg Q6H PRN IV NAUSEA AND/OR VOMITING Last administered on 03/26/16 08:15; Admin Dose 4 MG; Start 03/26/16 at 05:00 Acetaminophen (Tylenol Tab) 650 mg Q6H PRN PO PAIN AND OR ELEVATED TEMP; Start 03/26/16 at 05:00 Heparin Sodium (Porcine) (Heparin (5000 Units/0.5 ml)) 5,000 unit BID SC Last administered on 03/31/16 10:18; Admin Dose 5,000 UNIT; Start 03/26/16 at 09:00 Pantoprazole (Protonix Tab) 40 mg DAILY@06 PO Last administered on 03/31/16 05 :43; Admin Dose 40 MG; Start 03/27/16 at 06:00 Acetaminophen/ Hydrocodone Bitart ([place] (7.5-325)) 1 tab Q4H PRN PO PAIN LEVEL 8-10 Last administered on 03/31/16 09:39; Admin Dose 1 TAB; Start at 13:00 Loperamide HCl (Imodium Cap) 2 mg QID PRN PO DIARRHEA Last administered on 03/30 23:02; Admin Dose 2 MG; Start 03/27/16 at 09:30 Zolpidem Tartrate (Ambien) 5 mg HS PRN PO INSOMNIA Last administered on 23:13; Admin Dose 5 MG; Start 03/27/16 at 09:30 Acyclovir (Zovirax) 400 mg TID PO Last administered on 03/31/16 13:11; Admin Dose 400 MG; Start 03/27/16 at 21:00; Stop 04/03/16 at 21:00 Acyclovir (Zovirax Cr) 1 applic Q4 TOP Last administered on 03/31/16 13:12; Admin Dose 1 APPLIC; Start 03/27/16 at 17:00; Stop 04/03/16 at 17:00 Cyclobenzaprine HCl (Flexeril) 5 mg TID PRN PO msc spasms; Start 03/28/16 at 17 :00 Alprazolam (Xanax) 0.25 mg Q8H PRN PO ANXIETY Last administered on 03/30/16 01 :08; Admin Dose 0.25 MG; Start 03/28/16 at 17:00 Fluconazole (Diflucan) 200 mg DAILY PO Last administered on 03/31/16 09:34; Admin Dose 200 MG; Start 03/28/16 at 17:00; Stop 04/11/16 at 16:59 Polyethylene Glycol 17 gm 17 gm DAILY PRN PO CONSTIPATION; Start 03/28/16 at 21 :00 Ertapenem/Sodium Chloride (Invanz/NS) 100 ml @ 200 mls/hr Q24H IVPB Last administered on 03/30/16 16:17; Admin Dose 200 MLS/HR; Start 03/29/16 at 13:15 Docusate Sodium (Colace) 100 mg BID PO Last administered on 03/29/16 20:31; Admin Dose 100 MG; Start 03/29/16 at 21:00 Quetiapine Fumarate (Seroquel) 25 mg BID PO Last administered on 03/31/16 09: 34; Admin Dose 25 MG; Start 03/30/16 at 10:00 Lactulose (Enulose) 20 gm BID PO ; Start 03/30/16 at 21:00 ILIANA CHAVIRA NP Mar 31, 2016 13:53
[2016-03-31] MEDS: ERTAPENEM SODIUM 1 GM in SOD CHLORIDE 0.9% 100 ML IVPB SCH (14:22)
[2016-03-31] MEDS: ALPRAZOLAM 0.25 MG TAB PO PRN (16:31)
[2016-03-31 19:49] VITALS: BP 115/59; RESP 20
[2016-03-31] MEDS: ZOLPIDEM 5 MG TAB PO PRN (23:56)
[2016-04-01] MEDS: ALPRAZOLAM 0.25 MG TAB PO PRN ×2 (03:15→14:29)
[2016-04-01] MEDS: PANTOPRAZOLE (EC) 40 MG TAB PO SCH (07:21)
[2016-04-01 08:37] VITALS: BP 117/63; RESP 20
[2016-04-01] MEDS: LACTULOSE 30ML CUP PO SCH (09:18)
[2016-04-01] MEDS: DOCUSATE SODIUM 100 MG CAP PO SCH (09:19)
[2016-04-01] MEDS: QUETIAPINE 25 MG TAB PO SCH (09:19)
[2016-04-01] MEDS: ACYCLOVIR 400 MG TAB PO SCH ×2 (09:19→13:10)
[2016-04-01] MEDS: FLUCONAZOLE 200 MG TAB PO SCH (09:19)
[2016-04-01] MEDS: HEPARIN 5,000 UNIT/0.5 ML SYG SC SCH (09:24)
--- NOTE | 2016-04-01 10:51 | PN ---
Date/Time of Note Date/Time of Note DATE: 04/01/16 TIME: 10:48 Assessment/Plan Lines/Catheters IV Catheter Type (from Nrsg): Saline Lock Urinary Cath still in place: No Assessment/Plan Assessment/Plan 65 yo F with multiple non specific issues managed as follows 1. Herpes Genitalis: Continue Acyclovir / ID managing / pain control / continue supportive care 2. Mood disorder : ?Frustration versus depression Mood still extremely labile / Patient refused Telepsych / wants physician in person / started on Seroquel 3. 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 Abd distention and discomfort 2/2 Constipation Constipation now resolved / will encourage patient to remain on low dose colace 5. Morganella Morgagni / Yeast UTI Continue Levaquin /. ID managing abx 6, Chronic RA + diffuse degenerative joint disease on imaging Patient was not on DMARDS and was only on pain meds at home / continue home regimen and prednisone for now 7. PreDM A1c 6,2 good fasting levels in-house / continue close monitoring Dispo Patient wants to go to [facility]/ working on placement Further evaluation and treatment will be based on clinical course Full discussion with care team done. All questions Answered Please also see orders. Subjective 24 Hr Interval Summary Free Text/Dictation Patient seen and examined. Nursing reports no acute overnight events. Exam/Review of Systems Vital Signs Vitals Vital Signs Date Time Temp Pulse Resp B/P Pulse Ox O2 Delivery O2 Flow Rate FiO2 04/01/16 08:37 97.2 79 20 117/63 99 Intake and Output 03/31/16 03/31/16 04/01/16 15:00 23:00 07:00 Intake Total 1420 ml 1200 ml Balance 1420 ml 1200 ml Exam Constitutional: alert, distress, frail Psych: anxiety, depression Head: normocephalic Eyes: PERRL, No icteric ENMT: mucosa pink and moist Neck: non-tender, supple Respiratory: clear to auscultation, diminished breath sounds Cardiovascular: regular rate and rhythm, No murmurs/extra sounds Gastrointestinal: bowel sounds, non-tender, other (full / ?obese), soft, No ascites Genitourinary - Female: other (improved marcelina labial swelling swelling with small fluid filled blisters sparsely scattered around her labia bilaterally), No nl adnexae Musculoskeletal: other (patient has stigmata of chronic RA in fingers and hands ) Extremities: other (L foot indeed externally rotated at rest and difficult to internally rotate without pain at the hip), No edema, R foot drop Skin: rash or lesions Results Result Diagram: 03/31/16 0510 03/31/16 0510 Medications Medications Current Medications Ondansetron HCl (Zofran Inj) 4 mg Q6H PRN IV NAUSEA AND/OR VOMITING Last administered on 03/26/16 08:15; Admin Dose 4 MG; Start 03/26/16 at 05:00 Acetaminophen (Tylenol Tab) 650 mg Q6H PRN PO PAIN AND OR ELEVATED TEMP; Start 03/26/16 at 05:00 Heparin Sodium (Porcine) (Heparin (5000 Units/0.5 ml)) 5,000 unit BID SC Last administered on 04/01/16 09:24; Admin Dose 5,000 UNIT; Start 03/26/16 at 09:00 Pantoprazole (Protonix Tab) 40 mg DAILY@06 PO Last administered on 04/01/16 07 :21; Admin Dose 40 MG; Start 03/27/16 at 06:00 Acetaminophen/ Hydrocodone Bitart ([place] (7.5-325)) 1 tab Q4H PRN PO PAIN LEVEL 8-10 Last administered on 03/31/16 23:47; Admin Dose 1 TAB; Start at 13:00 Loperamide HCl (Imodium Cap) 2 mg QID PRN PO DIARRHEA Last administered on 03/30 23:02; Admin Dose 2 MG; Start 03/27/16 at 09:30 Zolpidem Tartrate (Ambien) 5 mg HS PRN PO INSOMNIA Last administered on 23:56; Admin Dose 5 MG; Start 03/27/16 at 09:30 Acyclovir (Zovirax) 400 mg TID PO Last administered on 04/01/16 09:19; Admin Dose 400 MG; Start 03/27/16 at 21:00; Stop 04/03/16 at 21:00 Cyclobenzaprine HCl (Flexeril) 5 mg TID PRN PO msc spasms; Start 03/28/16 at 17 :00 Alprazolam (Xanax) 0.25 mg Q8H PRN PO ANXIETY Last administered on 04/01/16 03 :15; Admin Dose 0.25 MG; Start 03/28/16 at 17:00 Fluconazole (Diflucan) 200 mg DAILY PO Last administered on 04/01/16 09:19; Admin Dose 200 MG; Start 03/28/16 at 17:00; Stop 04/11/16 at 16:59 Polyethylene Glycol 17 gm 17 gm DAILY PRN PO CONSTIPATION; Start 03/28/16 at 21 :00 Ertapenem/Sodium Chloride (Invanz/NS) 100 ml @ 200 mls/hr Q24H IVPB Last administered on 03/31/16 14:22; Admin Dose 200 MLS/HR; Start 03/29/16 at 13:15 Docusate Sodium (Colace) 100 mg BID PO Last administered on 04/01/16 09:19; Admin Dose 100 MG; Start 03/29/16 at 21:00 Quetiapine Fumarate (Seroquel) 25 mg BID PO Last administered on 04/01/16 09: 19; Admin Dose 25 MG; Start 03/30/16 at 10:00 Lactulose (Enulose) 20 gm BID PO Last administered on 04/01/16 09:18; Admin Dose 20 GM; Start 03/30/16 at 21:00 EDMOND MURRAY Apr 01, 2016 10:51
[2016-04-01] MEDS: HYDROCODONE/APAP (7.5/325) TAB PO PRN ×2 (11:46→15:22)
--- NOTE | 2016-04-01 12:13 | CONS ---
Date/Time of Note Date/Time of Note DATE: 04/01/16 TIME: 12:12 Assessment/Plan Assessment/Plan Chief Complaint/Hosp Course Subjective: No acute changes per report, looks comfortable, no fevers MICROBIOLOGY: Urine culture is growing MDR Morganella/E coli Abx: Invanz #4, Acyclovir PHYSICAL EXAMINATION: GENERAL: Chronically ill-appearing, elderly woman who is in no distress. HEENT: Head atraumatic, normocephalic. Sclerae anicteric. Buccal mucosa dry. NECK: Supple. Trachea midline. CHEST: Rise symmetrical. Breath sounds diminished to bases. HEART: S1, S2. ABDOMEN: Soft. Bowel tones present. EXTREMITIES: Without cyanosis. ASSESSMENT: 1. Vaginal herpes on acyclovir. 2. Mild gram-negative kevin urinary tract infection. 3. Rheumatoid arthritis. 4. Chronic pain syndrome. PLAN: Remains stable, continue Invanz for one more days, ok dc on PO Acyclovir when medically cleared=> 10 days total DW staff Problems: Consultation Date/Type/Reason Admit Date/Time Mar 26, 2016 at 02:34 Type of Consultation: id Exam/Review of Systems Vital Signs Vitals Vital Signs Date Time Temp Pulse Resp B/P Pulse Ox O2 Delivery O2 Flow Rate FiO2 04/01/16 08:37 97.2 79 20 117/63 99 Intake and Output 03/31/16 03/31/16 04/01/16 15:00 23:00 07:00 Intake Total 1420 ml 1200 ml Balance 1420 ml 1200 ml Results Result Diagram: 03/31/16 0510 03/31/16 0510 Medications Medications Current Medications Ondansetron HCl (Zofran Inj) 4 mg Q6H PRN IV NAUSEA AND/OR VOMITING Last administered on 03/26/16 08:15; Admin Dose 4 MG; Start 03/26/16 at 05:00 Acetaminophen (Tylenol Tab) 650 mg Q6H PRN PO PAIN AND OR ELEVATED TEMP; Start 03/26/16 at 05:00 Heparin Sodium (Porcine) (Heparin (5000 Units/0.5 ml)) 5,000 unit BID SC Last administered on 04/01/16 09:24; Admin Dose 5,000 UNIT; Start 03/26/16 at 09:00 Pantoprazole (Protonix Tab) 40 mg DAILY@06 PO Last administered on 04/01/16 07 :21; Admin Dose 40 MG; Start 03/27/16 at 06:00 Acetaminophen/ Hydrocodone Bitart ([place] (7.5-325)) 1 tab Q4H PRN PO PAIN LEVEL 8-10 Last administered on 04/01/16 11:46; Admin Dose 1 TAB; Start at 13:00 Loperamide HCl (Imodium Cap) 2 mg QID PRN PO DIARRHEA Last administered on 03/30 23:02; Admin Dose 2 MG; Start 03/27/16 at 09:30 Zolpidem Tartrate (Ambien) 5 mg HS PRN PO INSOMNIA Last administered on 23:56; Admin Dose 5 MG; Start 03/27/16 at 09:30 Acyclovir (Zovirax) 400 mg TID PO Last administered on 04/01/16 09:19; Admin Dose 400 MG; Start 03/27/16 at 21:00; Stop 04/03/16 at 21:00 Cyclobenzaprine HCl (Flexeril) 5 mg TID PRN PO msc spasms; Start 03/28/16 at 17 :00 Alprazolam (Xanax) 0.25 mg Q8H PRN PO ANXIETY Last administered on 04/01/16 03 :15; Admin Dose 0.25 MG; Start 03/28/16 at 17:00 Fluconazole (Diflucan) 200 mg DAILY PO Last administered on 04/01/16 09:19; Admin Dose 200 MG; Start 03/28/16 at 17:00; Stop 04/11/16 at 16:59 Polyethylene Glycol 17 gm 17 gm DAILY PRN PO CONSTIPATION; Start 03/28/16 at 21 :00 Ertapenem/Sodium Chloride (Invanz/NS) 100 ml @ 200 mls/hr Q24H IVPB Last administered on 03/31/16 14:22; Admin Dose 200 MLS/HR; Start 03/29/16 at 13:15 Docusate Sodium (Colace) 100 mg BID PO Last administered on 04/01/16 09:19; Admin Dose 100 MG; Start 03/29/16 at 21:00 Quetiapine Fumarate (Seroquel) 25 mg BID PO Last administered on 04/01/16 09: 19; Admin Dose 25 MG; Start 03/30/16 at 10:00 Lactulose (Enulose) 20 gm BID PO Last administered on 04/01/16t 09:18; Admin Dose 20 GM; Start 03/30/16 at 21:00 ILIANA CHAVIRA NP Apr 01, 2016 12:13
[2016-04-01] MEDS: ERTAPENEM SODIUM 1 GM in SOD CHLORIDE 0.9% 100 ML IVPB SCH (13:10)
[2016-04-01] MEDS ORDERED: ACET325T33 PO (14:45)
[2016-04-01] MEDS ORDERED: CYCL-319 PO (14:45)
[2016-04-01] MEDS ORDERED: DOCU-144 PO (14:45)
[2016-04-01] MEDS ORDERED: IPRA3AMP HHN (14:45)
[2016-04-01] MEDS ORDERED: PANT40TA4 PO (14:45)
[2016-04-01] MEDS ORDERED: QUET25TA33 PO (14:45)
[2016-04-01] MEDS ORDERED: POLY17PO6 PO (14:45)
[2016-04-01] MEDS ORDERED: HYDR-3605 PO (14:45)
[2016-04-01] MEDS ORDERED: ALPR0.254 PO (14:45)
[2016-04-01] MEDS ORDERED: ACYC400T2 PO (14:45)
[2016-04-01] MEDS ORDERED: ZOLP5TAB PO (14:45)
--- NOTE | 2016-04-02 12:39 | DS ---
DATE OF ADMISSION: 03/26/2016 DATE OF DISCHARGE: 04/01/2016 PRESENTING COMPLAINT: Bilateral lower extremity pain. ADMISSION DIAGNOSES: 1. Exacerbation of rheumatoid arthritis. 2. Chronic pain. FINAL DIAGNOSES: 1. Herpes genitalis. The patient to complete a 10-day course of acyclovir. 2. Severe mood disorder, likely bipolar, with paranoid tendencies. The patient refused a telepsych iatric evaluation, was started on low dose Seroquel in house with barely any improvement. 3. Chronic lower extremity neuropathy and ____-sided ankle torsion and right-sided foot mild foot drop. 3. Old healed fractures, left lower extremity. 4. Severe constipation likely secondary to chronic pain medication use, now resolved. 5. 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 6. Chronic rheumatoid arthritis with diffuse degenerative joint disease on imaging and chronic join t changes. The patient was not on disease modifying anti-rheumatic drugs and refused commencement in-house. 7. Prediabetes mellitus with A1c of 6.2 with good levels on 1800 calorie diet. CONSULTS ON THE CASE: Include infectious disease, Dr. Florentin Padilla, case management, and as roselyn machado earlier, the patient refused telepsychiatry. INTERVENTIONS: The patient was basically managed with supportive care, but she did have a CT scan o f her abdomen that showed gallstones in the gallbladder without cholecystitis, atherosclerosis, nono bstructing renal stones, calcification of mitral valve annulus, multiple fibroids in the uterus with some partially calcified, atherosclerosis, constipation with large amount of stool in the rectosigm oid, degenerative spine changes, thoracic scoliosis, bilateral total hip arthroplasties. She had an x-ray of the abdomen to rule out ____ was unremarkable and she did have x-rays of the tibia and fib guilherme and her left ankle that did show old healed fractures of the tibia and fibula with satisfactory alignment, severe degenerative changes of the left knee joint and an enchondroma in the proximal tib ia. HOSPITAL COURSE: Full details are available in chart for review. In summary, this patient was admi tted with bilateral lower extremity pain, but essentially she really had very nonspecific symptoms. She said in the board and care where she came from that she was being poorly treated. She cited w orsening abdominal girth, loss of hair and worsening functional ability in terms of working and car ing for herself as the reasons. She had not one specific complains. The patient, of note, does hav e chronic rheumatoid arthritis that has caused severe changes in her joints, especially in the joint s of her hands and her legs, but she does not seem to understand that her disease that might be con tributing to her lack of function versus poor care. She also had a very labile mood and was extreme ly difficult to converse with. She had reasons for every symptom and tried to rationalize every st atement. She had paranoid ideations and she would cry multiple times during our conversation and at other times be exceedingly polite and refused most interventions, and be upset when interventions w ere not done. ____as well. The patient is ____ to try and get psychiatry review. However, when we brought in the robot for telepsych, the patient vehemently refused the assessment. She was started on low dose Seroquel; however, there was not much improvement in her personality prior to being dis charged. The patient reports being frustrated and overrun by her disease, but at multiple times ref used help, and based her treatment on what she felt was right was always recommended most of the ti me. Eventually we were able to convince her that she did need rehabilitation, and hopefully with go od rehabilitation, she will regain her most of her function. We have got ____home health and rehab accepted the patient for further care and I think this is best for her versus a board and care facil [facility], and she is being transferred to them for continued management. DISCHARGE MEDICATIONS: 1. Tylenol 650 q.6h. p.r.n. 2. Acyclovir 400 p.o. t.i.d. to complete a 10-day course. 3. Alprazolam 0.5 p.o. p.r.n. anxiety. 4. Flexeril 5 mg p.o. t.i.d. p.r.n. muscle spasms. 5. Colace 100 mg p.o. b.i.d. 6. Moosic 7.5/325 one tablet every 4 hours p.r.n. pain. 7. Albuterol and ipratropium nebulizer every 4 hours as needed. 8. Protonix 40 daily. 9. MiraLax 17 grams daily. 10. Seroquel 25 p.o. b.i.d. 11. Zolpidem 5 mg p.o. at bedtime. 12. She was also continued on her Bengay greaseless cream as needed and ____. DISCHARGE CONDITION: Stable. ACTIVITIES: Recommendation is aggressive physical therapy. Follow up will be with an assigned phys ician at the detention. DIET: 1800 calorie ADA diet. Overall time spent on discharge planning has been more than 45 minutes. Dictated By: EDMOND MURRAY MD BA/NTS Conf#: [id number] DID#: [id number]
== END 2016-04-01 15:40 | DRG 554 ==
LOC: E/R 00:20 → MS2 02:34
PROVIDERS: ADMIT Internal Medicine; ATTEND Internal Medicine
DX: M17.12 Unilateral primary osteoarthritis, left knee (principal); B00.89 Other herpesviral infection; N39.0 Urinary tract infection, site not specified; M06.89 Other specified rheumatoid arthritis, multiple sites; A60.04 Herpesviral vulvovaginitis; G89.29 Other chronic pain; G62.89 Other specified polyneuropathies; R14.0 Abdominal distension (gaseous); M21.372 Foot drop, left foot; M79.662 Pain in left lower leg; M79.661 Pain in right lower leg; M19.91 Primary osteoarthritis, unspecified site; F39 Unspecified mood [affective] disorder; F31.9 Bipolar disorder, unspecified; B96.20 Unspecified Escherichia coli [E. coli] as the cause of diseases classified elsewhere; B00.9 Herpesviral infection, unspecified; B96.4 Proteus (mirabilis) (morganii) as the cause of diseases classified elsewhere; K80.80 Other cholelithiasis without obstruction; F60.0 Paranoid personality disorder; R73.03 Prediabetes; Z51.5 Encounter for palliative care
CPT/HCPCS: 73590; 73610; 74000; 74176; 80048; 80053; 80061; 81001; 81003; 83036; 85025; 85651; 86140; 86430; 86694; 86703; 87086; 96374; 96375; 96376; 97110; 97162; 97167; 97530; J1170; J1335; J2060; J2270; J2405